=== PATIENT | female | born 1950 | race Caucasian/White ===

== ENCOUNTER 2023-01-15 11:58 | Emergency (ER) | payer MEDICARE, BC, SELFPAY ==
[2023-01-15 12:09] VITALS: BP 167/99; PULSE 92; RESP 18; TEMP 36.1; O2SAT 97
--- NOTE | 2023-01-15 12:19 | CRLHL7_ITS ---
For Patients: As a result of the Cures Act, medical imaging exams and procedure reports are released immediately into your electronic medical record. You may view this report before your referring provider. If you have questions, please contact your health care provider. INDICATION: Cough, infiltrate. TECHNIQUE: Chest 2 views. COMPARISON: None. FINDINGS: Cardiovascular and mediastinum: Heart size and vasculature are normal in caliber and appearance. Lungs and pleural spaces: Lungs are clear. No sign of infiltrate or mass. No sign of pleural effusion. No pneumothorax. Bones and soft tissues: No significant findings. IMPRESSION: No acute or significant findings. Dictated by Rashid Pickard MD @ 01/15/2023 5:22:18 PM (Electronically Signed)
--- NOTE | 2023-01-15 12:24 | ED.GENADULT ---
HPI - General Adult General Time Seen by Provider: 12:24 <Rashid Guerra MD - Last Filed: 02/06/23 16:52> Date Seen: 01/15/23 <Rashid Guerra MD - Last Filed: 02/06/23 16:52> Chief complaint: Neuro Symptoms/Altered Deficit <Rashid Guerra MD - Last Filed: 02/06/23 16:52> Stated complaint: L side numb <Rashid Guerra MD - Last Filed: 02/06/23 16:52> Time Seen by Provider: 01/15/23 12:06 <Rashid Guerra MD - Last Filed: 02/06/23 16:52> Source: patient and family <Rashid Guerra MD - Last Filed: 02/06/23 16:52> Mode of arrival: wheelchair <Rashid Guerra MD - Last Filed: 02/06/23 16:52> Limitations: no limitations <Rashid Guerra MD - Last Filed: 02/06/23 16:52> History of Present Illness HPI narrative: John is a 72-year-old female past medical history includes multiple sclerosis 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 Patient is not sure but developed left-sided numbness over the last week, patient states that it was more than acute onset and gradual, it has been unchanged, she feels it more in her left lower extremity. Numbness includes facial, left upper extremity and left lower extremity, she had her intrathecal baclofen pump changed recently, her last MR brain with/July, she feels that her MS has progressed, she denies any visual changes, headache, dizziness or lightheadedness, no facial weakness, no trouble speaking or swallowing, she gets her care at [facility]. She left [place] from [address] 0 01/11 due to inability to get care, he is unable to get into [facility], patient has had a chronic cough, she feels that her breathing has worsened, no fevers or chills, no nausea vomiting. She denies any new spasticity, muscular or bladder. She felt her blood pressure was more elevated. She was told in the past that she may have had some TIAs. She reached out to her Neurologist [facility] recommended to be seen in the emergency department. Concern for the left-sided numbness she presents emergency department. <Rashid Guerra MD - Last Filed: 02/06/23 16:52> Related Data Home medications: Home Medications Medication Instructions Recorded Confirmed albuterol sulfate 90 mcg/actuation 2 puff inhalation Q4H PRN 01/15/23 01/15/23 aerosol inhaler baclofen 10 mg tablet 10 mg PO BID PRN 01/15/23 01/15/23 bupropion HCl 150 mg 24 hr tablet, 150 mg PO DAILY 01/15/23 01/15/23 extended release cephalexin 250 mg capsule 250 mg PO DAILY PRN 01/15/23 01/15/23 furosemide 40 mg tablet 40 mg PO DAILY 01/15/23 01/15/23 levothyroxine 125 mcg tablet 125 mcg PO QAM 01/15/23 01/15/23 multivitamin .ROUTE 01/15/23 valsartan 80 mg tablet 80 mg PO DAILY 01/15/23 01/15/23 Previous Rx's Medication Instructions Recorded atorvastatin 40 mg tablet 40 mg PO DAILY #30 tabs 01/15/23 <Rashid Guerra MD - Last Filed: 02/06/23 16:52> Allergies/adverse reactions: Allergies Allergy/AdvReac Type Severity Reaction Status Date / Time phenytoin [From Dilantin] Allergy Severe Throat Verified 01/15/23 12:15 swelling Sulfa (Sulfonamide Allergy Severe Hives Verified 01/15/23 12:15 Antibiotics) <Rashid Guerra MD - Last Filed: 02/06/23 16:52> Review of Systems Status of ROS: Reports: 10 or more systems reviewed and unremarkable except as noted in History and below <Rashid Guerra MD - Last Filed: 02/06/23 16:52> [facility] Medical History: Medical History (Updated 01/30/23 @ 00:00 by Background Daemon) Lacunar cerebrovascular accident (CVA) ?I63.81 - Other cerebral infarction due to occlusion or stenosis of small artery (ICD-10) Asthma ?J45.909 - Unspecified asthma, uncomplicated (ICD-10) Presence of intrathecal baclofen pump ?Z97.8 - Presence of other specified devices (ICD-10) 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 ?G35 - Multiple sclerosis (ICD-10) ?G82.50 - Quadriplegia, unspecified (ICD-10) Respiratory failure, chronic neuromuscular ?J96.10 - Chronic respiratory failure, unspecified whether with hypoxia or hypercapnia (ICD-10) 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 - Other osteoporosis without current pathological fracture (ICD-10) Neurogenic bladder ?N31.9 - Neuromuscular dysfunction of bladder, unspecified (ICD-10) Neurogenic bowel ?K59.2 - Neurogenic bowel, not elsewhere classified (ICD-10) Osteoarthritis ?M19.90 - Unspecified osteoarthritis, unspecified site (ICD-10) Hypothyroidism ?E03.9 - Hypothyroidism, unspecified (ICD-10) Multiple sclerosis ?G35 - Multiple sclerosis (ICD-10) Meningioma ?D32.9 - Benign neoplasm of meninges, unspecified (ICD-10) Restrictive lung disease ?J98.4 - Other disorders of lung (ICD-10) Spinal stenosis excluding cervical region ?M48.00 - Spinal stenosis, site unspecified (ICD-10) <Rashid Guerra MD - Last Filed: 02/06/23 16:52> Surgical History: Surgical History (Updated 01/15/23 @ 12:44 by Callie Young RN) S/P colostomy ?Z93.3 - Colostomy status (ICD-10) <Rashid Guerra MD - Last Filed: 02/06/23 16:52> Social History: Social History Smoking Status: Former smoker Do you use any of these nicotine containing products: None Second hand tobacco smoke exposure: No How often do you have a drink containing alcohol: never AUDIT-C Alcohol total score: 0 Non-prescribed substance use: denies use service: No <Rashid Guerra MD - Last Filed: 02/06/23 16:52> Exam Narrative: Exam Narrative: General: no obvious distress sitting comfortably HEENT: symmetrical smile, no unilateral paralysis, pupils equal round reactive to light, extraocular muscles intact normal peripheral vision neck: supple lungs: clear to auscultation bilaterally Heart: normal sinus rhythm S1-S2 abdomen: bowel sounds present muscle skeletal: chronic quadriplegia Neuro: NIH stroke scale: 1A: Level of consciousness:0 1B: Ask month an age:0 1C: Blink eyes and squeeze hands:1 2: Horizontal extraocular movements:0 3: Visual estrada: 0 4: Facial palsy:0 5A: Left arm motor drift: Unable to perform due to chronic quadriplegia 5B: Right arm motor drift: Unable to perform due to chronic quadriplegia 6A: Left leg leg motor drift: Unable to perform due to chronic quadriplegia 6B: Right leg motor drift:Unable to perform due to chronic quadriplegia 7: Limb ataxia 8:Sensation: 1 9: Language/aphasia:0 10: Dysarthria:0 11: Extinction/inattention:0 2 <Rashid Guerra MD - Last Filed: 02/06/23 16:52> Const: Vital Signs, click to edit/add: Vital Signs - 24 hr 01/15/23 12:09 01/15/23 14:54 Temperature 97 F L 96.5 F L Pulse Rate [Pulse Oximeter] 92 91 Respiratory Rate 18 Blood Pressure [Ri ght Upper Arm] 167/99 H 170/97 H Pulse Oximetry 97 97 Oxygen Delivery Me thod Room Air <Rashid Guerra MD - Last Filed: 02/06/23 16:52> Vital Signs, click to edit/add: Vital Signs - 24 hr 01/15/23 12:09 01/15/23 14:54 Temperature 97 F L 96.5 F L Pulse Rate [Pulse Oximeter] 92 91 Respiratory Rate 18 Blood Pressure [Ri ght Upper Arm] 167/99 H 170/97 H Pulse Oximetry 97 97 Oxygen Delivery Me thod Room Air <James Castaneda MD - Last Filed: 01/15/23 18:23> Course Course Hospital Course: 12:30 PM: AIDET performed, blood pressure mildly elevated at 160 7/99 will continue to monitor, vitals are otherwise stable, workup will include MR brain without contrast to rule out any new infarcts versus progression of MS, also obtain Chest XR 2 views, magnesium, CBC and CMP, patient's Joseph catheter has been draining appropriately, spasticity has been controlled. Differential diagnosis include but not limited to CVA, worsening MS, heart failure, peripheral neuropathy, neuromuscular disease, other considerations are electrolyte imbalances, anemia, medication side effects or reactions, <Rashid Guerra MD - Last Filed: 02/06/23 16:52> Reevaluation(s) Time of Reevaluation #1: 14:54 <Rashid Guerra MD - Last Filed: 02/06/23 16:52> Reevaluation #1: XR chest two view showed no acute cardiopulmonary process, CBC showed no leukocytosis or anemia, metabolic panel showed mildly elevated LFTs, electrolytes, magnesium all within normal limits, normal renal function, CRP negative, unable to get MR brain until 4:30 p.m. this afternoon, the patient is doing well otherwise, blood pressure has improved during her stay. Will continue to monitor. <Rashid Guerra MD - Last Filed: 02/06/23 16:52> Time of Reevaluation #2: 15:57 <Rashid Guerra MD - Last Filed: 02/06/23 16:52> Reevaluation #2: Patient to go for MR brain. Patient is doing well. Due to shift change transfer of care was given to Dr. Castaneda pending imaging results, please see his note for final disposition and plan. <Rashid Guerra MD - Last Filed: 02/06/23 16:52> Reevaluation #3: Patient's MRI returns showing a subacute right lacunar infarct that could be consistent with her fairly new left-sided numbness. There is also evidence for some old lacunar infarcts. She tells me that she was on atorvastatin in the past and it was stopped for unclear reasons. She is fairly certain that she did not have side effects from it. She is not currently on any type of blood thinner. She is on valsartan for hypertension but her blood pressure has been still running in the 170 systolic range. We discussed permissive hypertension but that Dr. Mclaughlin would likely try to lower her blood pressure at some point in the next few weeks. I did provide her with a printed copy of her MRI report to take to her follow-up visit. <Jamse Castaneda MD - Last Filed: 01/15/23 18:23> Vital Signs Vital signs: Initial Vital Signs Temperature 97 F L 01/15/23 12:09 Temperature Source Temporal Artery Scan 01/15/23 12:09 Pulse Rate 92 01/15/23 12:09 Respiratory Rate 18 01/15/23 12:09 Blood Pressure 167/99 H 01/15/23 12:09 Blood Pressure Mean 121 H 01/15/23 12:09 Blood Pressure Position Sitting 01/15/23 12:09 Pulse Oximetry 97 01/15/23 12:09 Oxygen Delivery Method Room Air 01/15/23 12:09 Vital Signs Temperature 97 F L 01/15/23 12:09 Pulse Rate 92 01/15/23 12:09 Respiratory Rate 18 01/15/23 12:09 Blood Pressure 167/99 H 01/15/23 12:09 Pulse Oximetry 97 01/15/23 12:09 Oxygen Delivery Method Room Air 01/15/23 12:09 Temperature 96.5 F L 01/15/23 14:54 Pulse Rate 91 01/15/23 14:54 Respiratory Rate 18 01/15/23 12:09 Blood Pressure 170/97 H 01/15/23 14:54 Pulse Oximetry 97 01/15/23 14:54 Oxygen Delivery Method Room Air 01/15/23 12:09 <Rashid Guerra MD - Last Filed: 02/06/23 16:52> Initial Vital Signs Temperature 97 F L 01/15/23 12:09 Temperature Source Temporal Artery Scan 01/15/23 12:09 Pulse Rate 92 01/15/23 12:09 Respiratory Rate 18 01/15/23 12:09 Blood Pressure 167/99 H 01/15/23 12:09 Blood Pressure Mean 121 H 01/15/23 12:09 Blood Pressure Position Sitting 01/15/23 12:09 Pulse Oximetry 97 01/15/23 12:09 Oxygen Delivery Method Room Air 01/15/23 12:09 Vital Signs Temperature 97 F L 01/15/23 12:09 Pulse Rate 92 01/15/23 12:09 Respiratory Rate 18 01/15/23 12:09 Blood Pressure 167/99 H 01/15/23 12:09 Pulse Oximetry 97 01/15/23 12:09 Oxygen Delivery Method Room Air 01/15/23 12:09 Temperature 96.5 F L 01/15/23 14:54 Pulse Rate 91 01/15/23 14:54 Respiratory Rate 18 01/15/23 12:09 Blood Pressure 170/97 H 01/15/23 14:54 Pulse Oximetry 97 01/15/23 14:54 Oxygen Delivery Method Room Air 01/15/23 12:09 <James Castaneda MD - Last Filed: 01/15/23 18:23> Medical Decision Making Lab Data Labs: Lab Results 01/15/23 01/15/23 Range/Units 12:40 12:40 WBC 5.40 (4.50-11.00) K/uL RBC 5.12 (4.00-5.20) m/uL Hgb 16.2 H (12.0-16.0) gm/dL Hct 49.2 (33.0-51.0) % MCV 96 (80-100) fL MCH 32 (26-34) pg MCHC 33 (32-36) gm/dL RDW Coeff of Heather 12.6 (11.5-15.5) % Plt Count 260 (140-440) K/uL Neut % (Auto) 65.4 (42.0-72.0) % Lymph % (Auto) 22.6 (20-44) % [place] % (Auto) 10.7 (0.0-11.0) % Eos % (Auto) 0.9 (0.0-7.0) % Baso % (Auto) 0.2 (0.0-3.0) % Neut # (Auto) 3.53 (1.7-7.0) K/uL Lymph # (Auto) 1.22 (0.90-2.90) K/uL [place] # (Auto) 0.60 (0.00-0.90) K/UL Eos # (Auto) 0.05 (0.00-0.50) K/uL Baso # (Auto) 0.01 (0.00-0.30) K/uL Sodium 137 (135-149) mmol/L Potassium 4.1 (3.6-5.1) mmol/L Chloride 98 (96-114) mmol/L Carbon Dioxide 30 (20-32) mmol/L BUN 12 (7-30) mg/dL Creatinine 0.4 L (0.5-1.5) mg/dL Estimated GFR 105 ml/min Glucose 90 (60-115) mg/dL Calcium 10.0 (8.4-10.6) mg/dL Magnesium 1.9 (1.5-2.6) mg/dL Total Bilirubin 0.5 (0.1-1.5) mg/dL AST 52 H (12-35) U/L ALT 62 H (4-35) U/L Alkaline Phosphatase 99 (40-150) U/L C-Reactive Protein < 0.5 L Cancelled (0.5-1.0) mg/dL Total Protein 8.0 (6.0-8.3) g/dL Albumin 4.7 (3.3-5.0) g/dL <Rashid Guerra MD - Last Filed: 02/06/23 16:52> Lab Results 01/15/23 01/15/23 Range/Units 12:40 12:40 WBC 5.40 (4.50-11.00) K/uL RBC 5.12 (4.00-5.20) m/uL Hgb 16.2 H (12.0-16.0) gm/dL Hct 49.2 (33.0-51.0) % MCV 96 (80-100) fL MCH 32 (26-34) pg MCHC 33 (32-36) gm/dL RDW Coeff of Heather 12.6 (11.5-15.5) % Plt Count 260 (140-440) K/uL Neut % (Auto) 65.4 (42.0-72.0) % Lymph % (Auto) 22.6 (20-44) % [place] % (Auto) 10.7 (0.0-11.0) % Eos % (Auto) 0.9 (0.0-7.0) % Baso % (Auto) 0.2 (0.0-3.0) % Neut # (Auto) 3.53 (1.7-7.0) K/uL Lymph # (Auto) 1.22 (0.90-2.90) K/uL [place] # (Auto) 0.60 (0.00-0.90) K/UL Eos # (Auto) 0.05 (0.00-0.50) K/uL Baso # (Auto) 0.01 (0.00-0.30) K/uL Sodium 137 (135-149) mmol/L Potassium 4.1 (3.6-5.1) mmol/L Chloride 98 (96-114) mmol/L Carbon Dioxide 30 (20-32) mmol/L BUN 12 (7-30) mg/dL Creatinine 0.4 L (0.5-1.5) mg/dL Estimated GFR 105 ml/min Glucose 90 (60-115) mg/dL Calcium 10.0 (8.4-10.6) mg/dL Magnesium 1.9 (1.5-2.6) mg/dL Total Bilirubin 0.5 (0.1-1.5) mg/dL AST 52 H (12-35) U/L ALT 62 H (4-35) U/L Alkaline Phosphatase 99 (40-150) U/L C-Reactive Protein < 0.5 L Cancelled (0.5-1.0) mg/dL Total Protein 8.0 (6.0-8.3) g/dL Albumin 4.7 (3.3-5.0) g/dL <James Castaneda MD - Last Filed: 01/15/23 18:23> Discharge Plan Discharge Clinical Impression: Lacunar stroke, History of quadriplegia, Left sided numbness, History of multiple sclerosis <Rashid Guerra MD - Last Filed: 02/06/23 16:52> Patient Disposition: Home, Self-Care <Rashid Guerra MD - Last Filed: 02/06/23 16:52> Condition: Stable <Rashid Guerra MD - Last Filed: 02/06/23 16:52> Additional Instructions: Continue to monitor your blood pressure. Dr. Mclaughlin will likely want to increase your valsartan dose. Start taking a baby aspirin daily. Start a atorvastatin 40 mg daily. Follow up with Dr. Mclaughlin next week. <Rashid Guerra MD - Last Filed: 02/06/23 16:52> Prescriptions: New atorvastatin 40 mg tablet 40 mg PO DAILY Qty: 30 0RF No Action furosemide 40 mg tablet 40 mg PO DAILY baclofen 10 mg tablet 10 mg PO BID PRN levothyroxine 125 mcg tablet 125 mcg PO QAM albuterol sulfate 90 mcg/actuation HFA aerosol inhaler 2 puff INHALATION Q4H PRN bupropion HCl 150 mg tablet extended release 24 hr 150 mg PO DAILY multivitamin [Daily Multi-Vitamin] .ROUTE cephalexin 250 mg capsule 250 mg PO DAILY PRN valsartan 80 mg tablet 80 mg PO DAILY <Rashid Guerra MD - Last Filed: 02/06/23 16:52> Follow Up/Referrals: Arnoldo,Madonna L, MD [Primary Care Provider] - <Rashid Guerra MD - Last Filed: 02/06/23 16:52> Stand Alone Forms: MyHealth Info Instructions <Rashid Guerra MD - Last Filed: 02/06/23 16:52>
--- OUTSIDE RECORDS SUMMARY | 2023-01-15 12:38 | XMS_ITS | Continuity of Care Document ---
Author Name Unknown Organization Z [facility] Address [address] [place] [address] Phone Care Team Providers Care Joiner Helper Name Role Phone Rashid Jacobs MD Unavailable Unavailable Allergies, Adverse Reactions, Alerts Substance Reaction Status Criticality sulfanilamide Active No Information Medications Medication Instructions Dosage Effective Dates (start - stop) Status Comments WELLBUTRIN (unknown strength) Not Available - Active Procedures Procedure Date Office/Outpatient Visit,Est, Mod 2012 X-Ray Exam Of Neck Spine, 4+ Views Office/outpatient visit,est, mod 2007 X-ray exam of total spine Office/outpatient visit,est, mod 2007 Office consultation, moderate 7 Advance Directives Directive Yes / No Effective Date File Name No Information Encounters Encounter Description Practice Location Reason(s) For Visit Diagnoses Date Provider Providers Copied on Encounter [facility] [place], [address] [place], [place] [address] [place] [address], [address], [place] tel:[phone] ADELINA - Maribell No Information 4 Reynaldo Mike. [facility] [place], [address] [place] [address], [address], [place], [place], [id number], [place]. tel:[phone] Office/Outpa tient Visit,Est, Mod Z [facility] [place], [address], [place], [address], [place] tel:[phone] [facility] CERVICAL[facility] 3 Reynaldo Mike. [facility], [address] [place] [address], [address], [place], [place], [id number], [place]. tel:[phone] Referring Provider: Jazzmine Martinez [facility] [address] [facility] [address] [address], [place], [address]. tel:[phone] Office/outpa tient visit,est, mod Z [facility], [address], [place], [address], [place] tel:[phone] [facility] No Information 8 Randyra Mike. [facility], [address] [place] [address], [address], [place], [place], [id number], [place]. tel:[phone] Office/outpa tient visit,est, mod Z [facility], [address], [place], [address], [place] tel:[phone] [facility] No Information Sep- 8 No Information Office consultation , moderate Z [facility], [address], [place], [address], [place] tel:[phone] [facility] No Information 7 No Information Family History Family Member Type Diagnosis Age At Onset Problem (finding) Payers Payer name Insurance type Covered democrat ID Authoriza tion(s) [facility] [id number] Medicare BL [id number] Social History Type Description Quantity Date Captured Comments Sex Female Smoking Status No Information Chief Complaint And Reason For Visit No Information Reason For Referral Reason For Referral No Information Plan Of Treatment Date Type Action Status Future Order: Radiology Order AP Lateral Cervical (APlatcerv), Ordered on: Ordered Future Order: Radiology Order F/ E Cervical (F/Ecervical), Ordered on: Ordered History Of Present Illness Encounter Date Complaint History Of Prese nt Illness No Information Functional Status Date Functional Assessmen t No Information Instructions Date Instruction Additional Infor mation No Information Assessments Type Assessment Date No Information Patient Care Teams Name Effective Dates (start - stop) Status Members No Information
--- OUTSIDE RECORDS SUMMARY | 2023-01-15 12:38 | XMS_ITS | Continuity of Care Document ---
Author Name Unknown Organization Z [facility] Address [address] [place] [address] Phone Care Team Providers Care Director Game Name Role Phone Rashid Jacobs MD Unavailable [...] Date Provider Providers Copied on Encounter Z [facility] [place], [address] [place], [place] [address] [place] [address], [address], [place] tel:[phone] ADELINA - Maribell No Information 4 Reynaldo Mike. [facility] [place], [address] [place] [address], [address], [place], [place], [address], [place]. tel:[phone] Office/Outpa tient Visit,Est, Mod Z [facility] [place], [address], [place], [address], [place] tel:[phone] [facility] CERV[facility] 3 Reynaldo Mike. [facility], [address] [place] [address], [address], [place], [place], [id number], [place]. tel:[phone] Referring Provider: Jazzmine Martinez [facility] [address] [facility] [address], [place], [address]. tel:[phone] Office/outpa tient visit,est, mod Z [facility], [address], [place], [address], [place] tel:[phone] [facility] No Information 8 Randyra Mike. [facility], [address] [place] [address], [address], [place], [place], [id number], [place]. tel:[phone] Office/outpa tient visit,est, mod Z [facility], [address] [address], [place], [address], [place] tel:[phone] [facility] No Information Sep- 8 No Information Office consultation , moderate Z [facility], [address] [address], [place], [address], [place] tel:[phone] [facility] No Information 7 No Information Family History Family Member Type Diagnosis Age At Onset Problem (finding) Payers Payer name Insurance type Covered libertarian ID Authoriza tion(s) [facility] [id number] Medicare BL [id number] Social History Type Description Quantity Date Captured [...]
--- NOTE | 2023-01-15 12:40 | ED.NURSE ---
Lab in with patient for draw.
[2023-01-15 12:51] LABS: Eosinophils Percent Auto 0.9 % (0.0-7.0); Hematocrit 49.2 % (33.0-51.0); Hemoglobin* 16.2 gm/dL (12.0-16.0); Lymphocytes Percent Auto 22.6 % (20-44); Mean Corpuscular HGB Conc 33 gm/dL (32-36); Mean Corpuscular Hemoglobin 32 pg (26-34); Mean Corpuscular Volume 96 fL (80-100); Monocytes Percent Auto 10.7 % (0.0-11.0); Neutrophils Percent Auto 65.4 % (42.0-72.0); Platelet Count* 260 K/uL (140-440); RDW Coefficient of Variation % 12.6 % (11.5-15.5); Red Blood Count 5.12 m/uL (4.00-5.20)
[2023-01-15 12:52] LABS: Basophils Absolute Auto 0.01 K/uL (0.00-0.30); Basophils Percent Auto 0.2 % (0.0-3.0); Eosinophils Absolute Auto 0.05 K/uL (0.00-0.50); Immature Granulocytes Abs Auto 0.01 K/uL (0.00-0.30); Immature Granulocytes Pct Auto 0.2 %; Lymphocytes Absolute Auto 1.22 K/uL (0.90-2.90); Neutrophils Absolute Auto 3.53 K/uL (1.7-7.0)
[2023-01-15 12:58] LABS: Slide Review Reflex No
[2023-01-15 13:03] LABS: Albumin* 4.7 g/dL (3.3-5.0); Chloride* 98 mmol/L (96-114); Sodium* 137 mmol/L (135-149)
[2023-01-15 13:04] LABS: Potassium* 4.1 mmol/L (3.6-5.1)
[2023-01-15 13:05] LABS: Creatinine* 0.4 mg/dL (0.5-1.5); Estimated Glomerular Filt Rate 105 ml/min
[2023-01-15 13:06] LABS: Alkaline Phosphatase* 99 U/L (40-150); Aspartate Amino Transferase* 52 U/L (12-35); Bilirubin Total* 0.5 mg/dL (0.1-1.5); Blood Urea Nitrogen* 12 mg/dL (7-30); Carbon Dioxide* 30 mmol/L (20-32)
[2023-01-15 13:07] LABS: Alanine Aminotransferase* 62 U/L (4-35); Glucose* 90 mg/dL (60-115); Magnesium* 1.9 mg/dL (1.5-2.6)
[2023-01-15 13:10] LABS: C Reactive Protein* < 0.5 mg/dL (0.5-1.0)
--- NOTE | 2023-01-15 13:22 | ED.NURSE ---
Pt assisted to empty urinary catheter bag. Bag full of clear, pale yellow urine. No foul odors or sediment noted.
--- NOTE | 2023-01-15 13:50 | ED.NURSE ---
This editorial writer received call from imagining department stating pt's MRI is scheduled for 1630 today. Per imagining, pt will need to be moved from her WC to lying on the bed with an air mat underneath her. Pt and notified and in agreement with this.
[2023-01-15 14:54] VITALS: BP 170/97; PULSE 91; TEMP 35.8; O2SAT 97
--- NOTE | 2023-01-15 16:09 | ED.NURSE ---
Pt's daughter assisted pt onto ED cot prior to MRI. Staff assisted to slide pt from ED cot to MRI cot. Pt tolerated transfer.
--- NOTE | 2023-01-15 16:30 | CRLHL7_ITS ---
For Patients: As a result of the Century Cures Act, medical imaging exams and procedure reports are released immediately into your electronic medical record. You may view this report before your referring provider. If you have questions, please contact your health care provider. INDICATION: Facial numbness. Upper extremity and lower extremity numbness. TECHNIQUE: Multiplanar multisequence noncontrast MR images acquired through the brain. COMPARISON: None. FINDINGS: Small focus of diffusion and FLAIR hyperintense signal abnormality demonstrating ADC isointensity within the lateral right thalamus, compatible with subacute infarction. Small focus of diffusion hyperintense signal abnormality demonstrating ADC iso/hyperintensity within the right corpus callosum splenium (series 5, image 39), compatible with late subacute to chronic infarction. Prominence of the ventricles and sulci compatible with mild diffuse cerebral volume loss. Chronic lacunar infarctions within the bilateral warren radiata, right centrum semiovale, and left basal ganglia. Small chronic cortically based infarction within the high right frontal lobe. Scattered FLAIR hyperintensities in the supratentorial white matter, typical for mild chronic microvascular ischemic changes. No recent intracranial hemorrhage. Postsurgical changes secondary to parietal vertex craniotomy. The major arterial flow voids of the skullbase are preserved. Thinning of the ocular lenses. The paranasal sinuses are well aerated. The mastoid air cells are clear. IMPRESSION: 1. Small subacute infarction within the lateral right thalamus. 2. Small late subacute to chronic infarction within the right corpus callosum splenium. 3. Chronic lacunar infarctions in the right centrum semiovale, bilateral warren radiata, and left basal ganglia. 4. Mild chronic microvascular ischemic changes and diffuse cerebral volume loss. 5. Postsurgical changes of parietal vertex craniotomy. Dictated by Hola Leonardo MD @ 01/15/2023 5:32:16 PM (Electronically Signed)
== END 2023-01-15 18:13 | disposition home or self-care (01) ==
PROVIDERS: Emergency Provider Student in an Organized Health Care Education/Training Program; PCP Internal Medicine
DX: I63.81 Other cerebral infarction due to occlusion or stenosis of small artery (principal); R20.8 Other disturbances of skin sensation
CPT/HCPCS: 36415; 70551; 71046; 80053; 83735; 85025; 86140; 99283; 99284; 99285

== ENCOUNTER 2024-03-24 10:45 | Emergency (ER) | payer MEDICARE, BC, SELFPAY ==
[2024-03-24 11:18] VITALS: BP 189/87; PULSE 83; RESP 18; O2SAT 97; BMI 22.6
--- NOTE | 2024-03-24 12:20 | ED_ITS ---
HPI - General Adult General Chief complaint: Hypertension Stated complaint: high BP Time Seen by Provider: 03/24/24 11:34 Source: patient Mode of arrival: ambulatory Limitations: no limitations History of Present Illness HPI narrative: 74-year-old female for presenting today with concerns of elevated blood pressure. Generally blood pressures range in the 130s to 140 systolic. This morning was 167 she took again 5 minutes later and it was 175 systolic. Patient denies any new symptoms of headache, chest pain, shortness of breath, dizziness. Patient has chronic shortness of breath which is unchanged today. She also has mild chronic dizziness which is also unchanged. She denies any new focal neurologic deficits, no ringing in her ears, no blurry vision or diplopia. No changes in her speech. Related Data Home Medications ?Medication ?Instructions ?Recorded ?Confirmed albuterol sulfate 90 mcg/actuation 2 puff inhalation Q4H PRN 01/15/23 03/24/24 aerosol inhaler baclofen 10 mg tablet 10 mg PO BID PRN 01/15/23 03/24/24 bupropion HCl 150 mg 24 hr tablet, 150 mg PO DAILY 01/15/23 03/24/24 extended release cephalexin 250 mg capsule 250 mg PO DAILY PRN 01/15/23 03/24/24 furosemide 40 mg tablet 40 mg PO DAILY 01/15/23 03/24/24 levothyroxine 125 mcg tablet 125 mcg PO QAM 01/15/23 03/24/24 multivitamin .Route 01/15/23 valsartan 80 mg tablet 80 mg PO DAILY 01/15/23 03/24/24 Previous Rx's ?Medication ?Instructions ?Recorded atorvastatin 40 mg tablet 40 mg PO DAILY #30 tabs 01/15/23 Allergies Allergy/AdvReac Type Severity Reaction Status Date / Time phenytoin [From Dilantin] Allergy Severe Throat Verified 03/24/24 11:26 swelling Sulfa (Sulfonamide Allergy Severe Hives Verified 03/24/24 11:26 Antibiotics) Review of Systems Status of ROS: Reports: 10 or more systems reviewed and unremarkable except as noted in History and below [facility] Medical History Lacunar cerebrovascular accident (CVA) ?I63.81 - Other cerebral infarction due to occlusion or stenosis of small artery (ICD-10) Asthma ?J45.909 - Unspecified asthma, uncomplicated (ICD-10) Presence of intrathecal baclofen pump ?Z97.8 - Presence of other specified devices (ICD-10) 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 ?G35 - Multiple sclerosis (ICD-10) ?G82.50 - Quadriplegia, unspecified (ICD-10) Respiratory failure, chronic neuromuscular ?J96.10 - Chronic respiratory failure, unspecified whether with hypoxia or hypercapnia (ICD-10) 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 - Other osteoporosis without current pathological fracture (ICD-10) Neurogenic bladder ?N31.9 - Neuromuscular dysfunction of bladder, unspecified (ICD-10) Neurogenic bowel ?K59.2 - Neurogenic bowel, not elsewhere classified (ICD-10) Osteoarthritis ?M19.90 - Unspecified osteoarthritis, unspecified site (ICD-10) Hypothyroidism ?E03.9 - Hypothyroidism, unspecified (ICD-10) Multiple sclerosis ?G35 - Multiple sclerosis (ICD-10) Meningioma ?D32.9 - Benign neoplasm of meninges, unspecified (ICD-10) Restrictive lung disease ?J98.4 - Other disorders of lung (ICD-10) Spinal stenosis excluding cervical region ?M48.00 - Spinal stenosis, site unspecified (ICD-10) Surgical History S/P colostomy ?Z93.3 - Colostomy status (ICD-10) Social History Smoking Status: Former smoker Do you use any of these nicotine containing products: None Second hand tobacco smoke exposure: No How often do you have a drink containing alcohol: never AUDIT-C Alcohol total score: 0 Non-prescribed substance use: denies use service: No Exam Narrative: Exam Narrative: Well-nourished well-developed patient in no acute distress. Alert and oriented x3. Answers questions appropriately. Mood and affect are appropriate. Thoughts are goal oriented and rational. No tangential or magical thinking noted. Patient speaks in full sentences without needing to catch her breath. HEENT: Normocephalic atraumatic. Pupils are equally round reactive to light. Extraocular muscles are intact. Conjunctivae are moist without any icterus noted. Moist mucous membranes. Cardiovascular: Heart is regular rate and rhythm S1 and S2 are present without any murmurs. Lungs: Clear to auscultation bilaterally no wheezes rhonchi or rales are appreciated. Patient takes deep breaths without any discomfort. Extremities: Bilateral lower extremities show 1+ pitting edema. Skin: Well perfused. Const: Vital Signs, click to edit/add: Vital Signs - 24 hr 03/24/24 11:18 Pulse Rate [Pulse Oximeter] 83 Respiratory Rate 18 Blood Pressure [Le ft Upper Arm] 189/87 H Pulse Oximetry 97 Oxygen Delivery Me thod Room Air Course Vital Signs Vital signs: Initial Vital Signs Pulse Rate 83 03/24/24 11:18 Respiratory Rate 18 03/24/24 11:18 Blood Pressure 189/87 H 03/24/24 11:18 Blood Pressure Mean 121 H 03/24/24 11:18 Blood Pressure Position Sitting 03/24/24 11:18 Pulse Oximetry 97 03/24/24 11:18 Oxygen Delivery Method Room Air 03/24/24 11:18 Vital Signs Pulse Rate 83 03/24/24 11:18 Respiratory Rate 18 03/24/24 11:18 Blood Pressure 189/87 H 03/24/24 11:18 Pulse Oximetry 97 03/24/24 11:18 Oxygen Delivery Method Room Air 03/24/24 11:18 Pulse Rate 83 03/24/24 11:18 Respiratory Rate 18 03/24/24 11:18 Blood Pressure 189/87 H 03/24/24 11:18 Pulse Oximetry 97 03/24/24 11:18 Oxygen Delivery Method Room Air 03/24/24 11:18 Medical Decision Making MDM Narrative Medical decision making narrative: 74-year-old female with 1 day of elevated blood pressures. We discussed that this is not something she needs to be concerned about. We discussed that blood pressures tend to fluctuate. We discussed that if they are elevated consistently then she can discuss this with her primary care provider and potentially change of blood pressure medications. Patient also has chronic lower extremity edema for which he takes diuretics for. She states that she has not taken her diuretics for the last few days because she has been busy. We discussed taking her diuretics. We discussed reasons to follow up in the ED. Patient and had no other questions. Discharge Plan Discharge Clinical Impression: Elevated blood pressure reading Patient Disposition: Home, Self-Care Condition: Stable Additional Instructions: Okay to take your diuretic. Do not repeat blood pressure reading today. Continue checking blood pressure as recommended per your primary care provider. If blood pressure readings continue to be elevated, you can follow-up with your primary care provider to discuss changing your medications. Prescriptions: No Action furosemide 40 mg tablet 40 mg PO DAILY baclofen 10 mg tablet 10 mg PO BID PRN levothyroxine 125 mcg tablet 125 mcg PO QAM albuterol sulfate 90 mcg/actuation HFA aerosol inhaler 2 puff INHALATION Q4H PRN bupropion HCl 150 mg tablet extended release 24 hr 150 mg PO DAILY multivitamin [Daily Multi-Vitamin] .Route cephalexin 250 mg capsule 250 mg PO DAILY PRN valsartan 80 mg tablet 80 mg PO DAILY atorvastatin 40 mg tablet 40 mg PO DAILY Qty: 30 0RF Follow Up/Referrals: Madonna Mclaughlin MD [Primary Care Provider] - Stand Alone Forms: [employer] Info Instructions
[2024-03-24 12:37] VITALS: BP 188/104; PULSE 75; RESP 18; TEMP 35.7; O2SAT 95
--- OUTSIDE RECORDS SUMMARY | 2024-03-24 12:40 | XMS_ITS | Clinical Summary ---
Author Organization [place] Address [address] [place] [id number] Care Team Providers Care Vp Human Resources Name Role Phone Ursula Braga MD Unavailable + [phone] Ursula Braga MD Unavailable [phone] Ursula Braga MD Unavailable + [phone] Madonna Lombardi Primary Care Provider [phone] Madonna Lombardi Unavailable [phone] Allergies Active Allergy Reactions Criticality Noted Date Comments Hydromorphone Medium 07/24/2010 Other reaction(s): Tongue Swelling Other (Do Not Use) Hives High 02/09/2021 Sulfa--Hives Dilontin--Throat swells Other Drug Allergy (See Comments) Headache 11/25/2008 Other reaction(s): Edema She had stress test 11/24/2008 and what ever she received for this made her tongue swell and slowed her ability to breath. ??She also got a headache which is same today as then. Phenytoin 09/30/2011 Other reaction(s): Tongue Swelling Sulfa Antibiotics Hives 08/14/2005 Hives Sulfamethoxazole-Trimethopri m Rash Low 11/23/2008 Teriparatide 08/08/2011 Other reaction(s): Chest Pain Had reaction 2009 and 2011 consisting of fatigue and chest tightness Medications Medication Sig Dispensed Refills Start Date End Date Status albuterol (VENTOLIN HFA) 108 (90 Base) MCG/ACT inhaler Inhale 2 puffs into the lungs every 4 hours as needed 01/24/2021 Active baclofen (LIORESAL) 10 MG tablet TAKE ONE TABLET BY MOUTH TWICE A DAY NEEDED FOR SPASTICITY. 08/31/2022 Active baclofen (LIORESAL) 500 mcg/mL injection 3.9521 mcg/hr by Intrathecal route 02/28/2022 Active buPROPion (WELLBUTRIN XL) 150 MG 24 hr tablet Take 1 tablet by mouth daily 05/25/2022 Active cephALEXin (KEFLEX) 250 MG capsule Take 250 mg by mouth daily TAKE ONE CAPSULE BY MOUTH EVERY DAY NEEDED FOR PROPYLAXIS 10/15/2022 Active furosemide (LASIX) 40 MG tablet Take 40 mg by mouth as needed Active hydrochlorothiazide (HYDRODIURIL) 25 MG tablet Take 1 tablet by mouth daily 08/31/2022 Active levothyroxine (SYNTHROID/LEVOTHROI D) 125 MCG tablet TAKE ONE TABLET BY MOUTH EVERY DAY BEFORE BREAKFAST. 09/14/2022 Active Multiple Vitamin (ONE-A-DAY ESSENTIAL) TABS Take 1 tablet by mouth daily Active polyethylene glycol (MIRALAX) 17 GM/Dose powder Use daily as needed Activ e valsartan (DIOVAN) 80 MG tablet Take 80 mg by mouth 2 times daily 10/04/2023 Active ibuprofen (ADVIL/MOTRIN) 200 MG tablet Take 400 mg by mouth every 8 hours as needed for pain Active Active Problems Problem Noted Date Diagnosed Date S/P colostomy 11/06/2022 Neuromuscular weakness 11/06/2022 Respiratory failure, chronic neuromuscular 11/06 Meningioma 11/06/2022 Encounters Date Type Department Care Team Description 01/13/2024 11:00 AM CDT Office Visit [facility] [address] [address] Ursula Braga MD MS (multiple sclerosis) (H) (Primary Dx); Spastic quadriplegia (H); Respiratory failure, chronic neuromuscular (H) 01/13/2024 Travel from Last 3 Months Social History Tobacco Use Types Packs/Day Years Used Date Smoking Tobacco: Former Cigarettes Smokeless Tobacco: Never Tobacco Cessation:Counseling Given: Not Answered Comments:Quit in 1995 PHQ-2 Answer Date Recorded PHQ-2 Score 0 01/13/2024 Adolescent Education Answer Date Record ed Getting School Help Needed Not on file 04/13 Sex and Gender Information Value Date Recorded Sex Assigned at Not on file Gender Identity Not on file Sexual Orientation Not on file Last Filed Vital Signs Vital Sign Reading Time Taken Comments Blood Pressure 176/89 01/13/2024 11:11 AM CDT Pulse 63 01/13/2024 11:11 AM CDT Temperature - - Respiratory Rate - - Oxygen Saturation - - Inhaled Oxygen Concentration - - Weight - - Height - - Body Mass Index - - Plan of Treatment Upcoming Encounters Date Type Department Care Team (Late st Contact Info) Description 07/16/2024 11:00 AM 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 [address] [address] Ursula Braga MD [address] [place] [id number] Health Maintenance Due Date Last Done Comments ADVANCE CARE PLANNING 1950 ANNUAL REVIEW OF HM ORDERS 1950 CT COLONOGRAPHY 1950 DEXA 1950 FIT 1950 FLEX SIG 1950 TSH W/FREE T4 REFLEX 1950 sDNA (Cologuard) 1950 HEPATITIS C SCREENING 02/20/1968 ZOSTER IMMUNIZATION (1 of 2) 02/20/2000 DTAP/TDAP/TD IMMUNIZATION (1 - Tdap) 07/11/2000 07/10/2000 RSV VACCINE (1 - 1-dose 60+ series) 2010 MAMMO SCREENING 11/10/2011 11/09/2009 GLUCOSE 02/11/2012 02/10/2009 FALL RISK ASSESSMENT 2015 LUNG CANCER SCREENING 03/03/2020 03/03/2019, 015 COLONOSCOPY 03/20/2020 03/20/2010 COLORECTAL CANCER SCREENING 03/20/2020 COVID-19 Vaccine ( season) 2023 06/19/2023, 05/18/2021, 11/11/2020, Additional history exists LIPID 11/06/2023 11/05/2022 INFLUENZA VACCINE (#1) 2024 7, 05/24/2016, 04/26/2015, Additional history exists MEDICARE ANNUAL WELLNESS VISIT 11/20/2024 11/21/2023 Pneumococcal Vaccine: 65+ Years Completed 06/06/2017, 04/11/2016, 07/21/2008, Additional history exists PHQ-2 (once per calendar year) Completed 01/13/2024, 11/05/2022 HPV IMMUNIZATION Aged Out No longer e ligible based on patient's age to complete this topic MENINGITIS IMMUNIZATION Aged Out No l onger eligible based on patient's age to complete this topic RSV MONOCLONAL ANTIBODY Aged Out No l onger eligible based on patient's age to complete this topic Procedures Procedure Name Priority Date/Time Associated Diagnosis Comments LIPID REFLEX TO DIRECT LDL PANEL Routine 11/05/2022 4:48 PM CDT Cerebrovascular accident (CVA) due to occlusion of small artery (H) BASIC METABOLIC PANEL Routine 02/10/2009 3:32 PM CDT from Last 3 Months or Most Recently Relevant to Health Maintenance Results * (ABNORMAL) Lipid panel reflex to direct LDL Fasting (11/05/2022 4:48 PM CDT) [facility] Cholesterol 332(H) <=199 mg/dL 11/05/2022 5:09 PM CDT [facility] Triglycerides 105 <=149 mg/dL 11/05/2022 5:09 PM CDT [facility] Direct Measure HDL 86 >=50 mg/dL 11/05/2022 5:09 PM CDT [facility] Comment: HDL Cholesterol Reference Range: 0-2 years: No reference ranges established for patients under 2 years old ??at [facility] for lipid analytes. 2-8 years: Greater than 45 mg/dL 18 years and older: Female: Greater than or equal to 50 mg/dL Male: ?? Greater than or equal to 40 mg/dL LDL Cholesterol Calculated 225(H) <=129 mg/dL 11/05/2022 5:09 PM CDT [facility] Patient Fasting > 8hrs? No 11/05/2022 5:09 PM CDT [facility] Blood BLOOD SPECIMEN / Unknown Venipuncture / Unknown 11/05/2022 4:48 PM CDT 11/05/2022 4:48 PM CDT Ursula Braga MD LAB - BLOOD OR DERABLES [facility] [address] [facility] [place] [id number], [facility] [phone] * Basic metabolic panel (02/10/2009 3:32 PM CDT) Sodium 140 133 - 144 mmol/L [facility] Potassium 4.1 3.4 - 5.3 mmol/L [facility] Chloride 106 94 - 109 mmol/L [facility] Carbon Dioxide 27 20 - 32 mmol/L [facility] Glucose 76 60 - 99 mg/dL [facility] Comment:Non Fasting Urea Nitrogen 15 7 - 30 mg/dL [facility] Creatinine 0.60 0.52 - 1.04 mg/dL [facility] Comment:New IDMS-traceable c alibration beginning 11/20/07 GFR Estimate >90 >60 mL/min/1.7 m2 [facility] GFR Estimate If Black >90 >60 mL/min/1.7 m2 [facility] Calcium 10.1 8.5 - 10.4 mg/dL [facility] Anion Gap 7 6 - 17 mmol/L [facility] 02/10/2009 3:32 PM CDT 02/10/2009 3:09 PM CDT Seun Grande MD LAB - BLOOD OR DERABLES [facility] from Last 3 Months or Most Recently Relevant to Health Maintenance Care Teams Vp Human Resources Relationship Specialty Start Date End Date Madonna Lombardi [address] [place] [address] [place] FOFANA [phone] PCP - General Internal Medicine 08/12/23 Ursula Braga MD [address] [place], [place] [address] Neurology 08/07/22 Ursula Braga MD [address] [place] [address] [id number] Neurology 09/19/22 Ursula Braga MD [address] [place] [id number] Assigned Neuroscience Provider 11/10/22 Madonna Lombardi [address] [place] [address] [place] Hen[place] [id number] Internal Medicine 09/25/23
--- OUTSIDE RECORDS SUMMARY | 2024-03-24 12:40 | XMS_ITS | Clinical Summary ---
Author Organization [facility] Address [address], [place] [address] Care Team Providers Care Salt Manager Name Role Phone Unassigned, Provider Primary Care Provider Unava ilable Source Comments You are receiving this document as you are listed as the primary care provider,follow-up provider, or the patient has been referred to you for consultation.This is in compliance with the Medicare andMedicaid EHR Incentive Program,which states Providers who transition their patient to another setting of careor provider of care or refers their patient to another provider of care shouldprovide summary care record for each transition of care or referral. [facility] Allergies Active Allergy Reactions Criticality Noted Date Comments Other Hives High 02/09/2021 Sulfa--Hives Dilontin--Throat swells Medications Medication Sig Dispensed Refills Start Date End Date Status baclofen (GABLOFEN) daily. Baclofen pump 10K MCG/20ML Daily Active polyethylene glycol (MIRALAX) 17 g packet Take by mouth daily. Acti ve Multiple Vitamins-Iron (MULTIVITAMIN/IRON OR) Active buPROPion (WELLBUTRIN XL) 150 MG 24 hour release tablet Take 1 Tablet by mouth daily. 09/19/2020 Active ALBUterol sulfate HFA (VENTOLIN HFA) 108 (90 Base) MCG/ACT inhaler Inhale 2 Puffs every 4 hours as needed. 01/24/2021 Active levothyroxine (SYNTHROID) 125 MCG tablet Take 125 mcg by mouth. Active furosemide (LASIX) 40 MG tablet Take 40 mg by mouth. Ac tive cephalexin (KEFLEX) 250 MG capsule 250mg Po Qday for prophylaxis 01/10/2021 Active Specialty Vitamins Products (VITAMINS FOR HAIR) Take 1 Tablet by mouth daily. Active Active Problems Patient Care Coordination No te Formatting of this note migh t be different from the original. Interactive with [facility], Closed to [facility], 04/10/2012. Problem Noted Date Diagnosed Date Restrictive lung disease 02/10/2021 Multiple sclerosis 02/10/2021 Neuromuscular weakness 02/10/2021 Chronic dyspnea 02/10/2021 Immunizations Name Administration Dates Next Due Pfizer Monovalent 12+ Purple Top 11/11/2020,07/23 Social History Tobacco Use Types Packs/Day Years Used Date Smoking Tobacco: Former Cigarettes Q uit: 1997 Smokeless Tobacco: Never Sex and Gender Information Value Date Recorded Sex Assigned at Not on file Gender Identity Not on file Sexual Orientation Not on file Last Filed Vital Signs Vital Sign Reading Time Taken Comments Blood Pressure - - Pulse 93 02/09/2021 2:54 PM CDT Temperature - - Respiratory Rate - - Oxygen Saturation 97% 02/09/2021 2:54 PM CDT Inhaled Oxygen Concentration - - Weight - - Height 167.6 cm (5' 6) 02/09/2021 2:54 PM CDT Body Mass Index - - Plan of Treatment Health Maintenance Due Date Last Done Comments Colon Cancer Screening Plan Due 1950 Hep C Screening (Preventive Services) 1950 Medicare Annual Wellness Visit 1950 Mammogram 1950 Cholesterol 1995 Zoster/Shingles (1 of 2) 02/20/2000 DTaP/Tdap/Td (1 - Tdap) 07/11/2000 07/10/2000 Dexa 2015 COVID-19 Vaccine ( season) 2023 11/11/2020, 08/13/2020 Influenza (#1) 2024 06/06/2017, 1109/2015, 04/26/2015, Additional history exists Pneumococcal 65+ Yrs Completed 06/06/2017, 04/11/2016, 07/21/2008, Additional history exists HepA Aged Out No longer eligi ble based on patient's age to complete this topic HepB Aged Out No longer eligi ble based on patient's age to complete this topic Hib Aged Out No longer eligi ble based on patient's age to complete this topic IPV (Polio) Aged Out No longer eligi ble based on patient's age to complete this topic MCV4 Aged Out No longer eligi ble based on patient's age to complete this topic Care Teams Salt Manager Relationship Specialty Start Date End Date Unassigned, Provider [address] [place] [address] PCP - General 11/26/01
--- OUTSIDE RECORDS SUMMARY | 2024-03-24 12:40 | XMS_ITS | Encounter Summary ---
Author Organization [place] Address [address] [place] [address] Care Team Providers Care Anthropology Professor Name Role Phone No Ref-Primary, Physician Primary Care Provider Ursula Braga MD Unavailable + [phone] Ursula Braga MD Unavailable + [phone] Ursula Braga MD Unavailable + [phone] Madonna Lombardi Primary Care Provider [phone] Madonna Lombardi Unavailable [phone] Reason for Visit * Reason Onset Date Comments Symptoms 01/14/2023 Numbness of enti re left side Encounter Details Date Type Department Care Team (Late st Contact Info) Description 01/14/2023 Telephone [facility] [address] [address] Ursula Braga MD [address] [place] [address] [phone] Symptoms (Numbness of entire left side) Social History Tobacco Use Types Packs/Day Years Used Date Smoking Tobacco: Former Cigarettes Smokeless Tobacco: Never Comments:Quit in 1995 PHQ-2 Answer Date Recorded PHQ-2 Score 0 11/05/2022 Sex and Gender Information Value Date Recorded Sex Assigned at Not on file Gender Identity Not on file Sexual Orientation Not on file documented as of this encounter Miscellaneous Notes * Telephone Encounter - Ursula Braga MD - 01/15/2023 12:36 PM CDT Agree w recommendations Thanks Ursula Braga MD on 01/15/2023 at 12:36 PM * Telephone Encounter - Eleazar Farmer RN - 01/15/2023 11:05 AM CDT RN reviewed 01/11 ED notes- pt was concerned about stroke as she had been having L sided numbness for about 1 week at time of ED visit. Stroke neurology consulted and recommended admission for work up, imaging in Aug showed chronic infarcts. Pt declined admission and left AMA with daughter on 01/11. I spoke to Myriam at length, her BP continues to be elevated 160s/90s on increased doses of Valsartan, currently taking 160mg daily. Does not know if she is taking hydrochlorothiazide. She has not hadany improvement in L sided numbness, continues to affect left leg/foot, left hand, left trunk and left face. She denies any new or additional neurological changes that are not baseline. I advised that she return to ED for work up and admission if still indicated. She is agreeable. Routing to provider as SLOAN. Eleazar Farmer RN, BSN [facility] Neurology * Telephone Encounter - Wendy Webster - 01/14/2023 10:16 AM CDT [facility] Phone Message May a detailed message be left on voicemail: yes Reason for Call: Symptoms or Concerns If patient has red-flag symptoms, warm transfer to triage line Current symptom or concern: numbness of entire left side Symptoms have been present for: 3 days Has patient previously been seen for this? Yes By : Bruno ED Date: 01/11/23 Are there any new or worsening symptoms? Yes: Myriam stated that when she was discharged from [facility], they informed her that her symptoms are not stroke related. Myriam is unsure of why she is experiencing the left sided numbness and is inquiring if she is needing another MRI. Myriam is requesting a call back to her daughter Shakila at [phone]. 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 Office Visit [facility] [address] [phone] Ursula Braga MD [address] [place] [address] [phone] documented as of this encounter Visit Diagnoses Not on filedocumented in this encounter Care Teams Anthropology Professor Relationship Specialty Start Date End Date No Ref-Primary, Physician PCP - General 05/28/22 08/11/23 Madonna Lombardi [address] [place] [phone] PCP - General Internal Medicine 08/12/23 Ursula Braga MD [address] [place] [address] [phone] Neurology 08/07/22 Ursula Braga MD [address] [place] [address] Neurology 09/19/22 Ursula Braga MD [address] [place] [address] Assigned Neuroscience Provider 11/10/22 Madonna Lombardi [address] [place] [address] Internal Medicine 09/25/23 documented as of this encounter
--- OUTSIDE RECORDS SUMMARY | 2024-03-24 12:40 | XMS_ITS | Encounter Summary ---
Author Organization [place] Address [address] [place] [address] Care Team Providers Care Customer Service Analyst Name Role Phone Ursula Braga MD Unavailable + [phone] Ursula Braga MD Unavailable + [phone] Ursula Braga MD Unavailable + [phone] Madonna Lombardi Primary Care Provider [phone] Madonna Lombardi Unavailable [phone] Encounter Details Date Type Department Care Team (Latest Contact Info) Description 01/13/2024 Travel Social History Tobacco Use Types Packs/Day Years [...] on file documented as of this encounter Plan of Treatment Upcoming Encounters Date Type Department Care Team (Late st Contact Info) Description 07/16/2024 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 Office Visit [facility] [phone] [place] [address] Ursula Braga MD [address] [place], [place] [phone] documented as of this encounter Visit Diagnoses Not on filedocumented in this encounter Care Teams Customer Service Analyst Relationship Specialty Start Date End Date Madonna Lombardi [address] [place] [address] PCP - General Internal Medicine 08/12/23 Ursula Braga MD [address] [place], [place] [phone] Neurology 08/07/22 Ursula Braga MD [address] [place] [address] 878995 Neurology 09/19/22 Ursula Braga MD [address] [place], [place] [phone] Assigned Neuroscience Provider 11/10/22 Madonna Lombardi [address] [place] [address] Internal Medicine 09/25/23 documented as of this encounter
--- OUTSIDE RECORDS SUMMARY | 2024-03-24 12:40 | XMS_ITS | Referral Summary ---
Author Organization [place] Address [address] [place] [address] Care Team Providers Care Connie Scratcher Name Role Phone Ursula Braga MD Unavailable + [phone] Ursula Braga MD Unavailable + [phone] Ursula Braga MD Unavailable + [phone] Madonna Lombardi Primary Care Provider [phone] Madonna Lombardi Unavailable [phone] Encounters Date Type Department Care Team Description 01/13/2024 Travel 01/13/2024 11:00 AM CDT Office Visit [facility] Neurology Clinic [address] [phone] Ursula Braga MD MS (multiple sclerosis) (H) (Primary Dx); Spastic quadriplegia (H); Respiratory failure, chronic neuromuscular (H) from Last 3 Months Allergies Active Allergy Reactions Criticality Noted Date [...] Respiratory failure, chronic neuromuscular 11/06 Meningioma 11/06/2022 Social History Tobacco Use Types Packs/Day Years [...] st Contact Info) Description 07/16/2024 11:00 AM CLINICAL DATA RESEARCH Office Visit [facility] Neurology [facility] [address] [address] Ursula Braga MD [address] [place] [address] [phone] Procedures Procedure Name Priority Date/Time Associated Diagnosis Comments LIPID REFLEX TO DIRECT LDL PANEL Routine 11/05/2022 4:48 PM CDT Cerebrovascular accident (CVA) due to occlusion of small artery (H) BASIC METABOLIC PANEL Routine 02/10/2009 3:32 PM CDT from Last 3 Months or Most Recently Relevant to Health Maintenance Results * (ABNORMAL) Lipid panel reflex to direct LDL Fasting (11/05/2022 4:48 PM CDT) Cholesterol 332(H) <=199 mg/dL 11/05/2022 5:09 PM CDT [facility] Triglycerides 105 <=149 mg/dL 11/05/2022 5:09 PM T [facility] Direct Measure HDL 86 >=50 mg/dL 11/05/2022 5:09 PM CDT [facility] Comment: HDL Cholesterol Reference Range: 0-2 years: No reference ranges established for patients under 2 years old ??at [facility] for lipid analytes. 2-8 years: Greater than 45 mg/dL 18 years and older: Female: Greater than or equal to 50 mg/dL Male: ?? Greater than or equal to 40 mg/dL LDL Cholesterol Calculated 225(H) <=129 mg/dL 11/05/2022 5:09 PM CDT [facility] Patient Fasting > 8hrs? No 11/05/2022 5:09 PM CDT [facility] Blood BLOOD SPECIMEN / Unknown Venipuncture / Unknown 11/05/2022 4:48 PM CDT 11/05/2022 4:48 PM CDT Ursula Braga MD LAB - BLOOD OR DERABLES Performing Organization Address City/[facility]/ZIP Co de Phone Number [facility] [address] [place] [address], [facility] [phone] * Basic metabolic panel (02/10/2009 3:32 PM [...] Recently Relevant to Health Maintenance Care Teams Connie Scratcher Relationship Specialty Start Date End Date Madonna Lombardi 100 [facility] [place] [phone] PCP - General Internal Medicine 08/12/23 Ursula Braga MD [address] [place] [address] Neurology 08/07/22 Ursula Braga MD [address] [place] [address] Neurology 09/19/22 Ursula Braga MD [address] [place] [address] Assigned Neuroscience Provider 11/10/22 Madonna Lombardi 100 [facility] [place] [phone] Internal Medicine 09/25/23
--- OUTSIDE RECORDS SUMMARY | 2024-03-24 12:40 | XMS_ITS | Encounter Summary ---
Author Organization [place] Address [address] [place] [address] Care Team Providers Care Magisterial District Judge Name Role Phone Ursula Braga MD Unavailable + [phone] Ursula Braga MD Unavailable + [phone] Ursula Braga MD Unavailable + [phone] Madonna Lombardi Primary Care Provider [phone] Madonna Lombardi Unavailable [phone] Reason for Visit * Reason Comments Follow Up MS Encounter Details Date Type Department Care Team (Late st Contact Info) Description 01/13/2024 11:00 AM CDT Office Visit [facility] [address] [address] Ursula Braga MD [address] [place] [address] MS (multiple sclerosis) (H) (Primary Dx); Spastic quadriplegia (H); Respiratory failure, chronic neuromuscular (H) Social History Tobacco Use Types Packs/Day Years [...] on file documented as of this encounter Last Filed Vital Signs Vital Sign Reading Time Taken Comments Blood Pressure 176/89 01/13/2024 11:11 AM CDT Pulse 63 01/13/2024 11:11 AM CDT Temperature - - Respiratory Rate - - Oxygen Saturation - - Inhaled Oxygen Concentration - - Weight - - Height - - Body Mass Index - - documented in this encounter Patient Instructions * Patient Instructions* Ursula Braga MD - 01/13/2024 11:00 AM CDT You report that brain fog and progression of weakness are main problems We discussed how the brain fog can be related to you not getting enough oxygen I strongly encourage you to wear your mask at night I have also recommended a trial of prednisone - Monitor to see if you have less brain fog, if you can move your arms a bit better -- if these changes occur, keep track of how long the effect lasts If benefit from steroids lasts more than 2 weeks, then I will continue a monthly prescription Follow up in about 6 months documented in this encounter Progress Notes * Ursula Braga MD - 01/13/2024 11:00 AM CDT Date of Service: 01/13/2024 [facility] Neurology MS Clinic Evaluation Subjective: 73-year-old very pleasant woman who presents for evaluation of multiple sclerosis. She also has a history of meningioma status post excision, she has placement of a black baclofen pump for management of chronic spasticity, she has a suprapubic catheter and colostomy for neurogenic bladder and bowel, she has osteoporosis, and restrictive lung disease. Many of these are complications ofher chronic multiple sclerosis. She presents today accompanied by her , Bassam, who assists in providing some of the history. Additional history is obtained from reviewing the outside medical record. She reports that since her last visit her breathing is getting worse. She also notices some brain fog. This seems to come and go. It can be debilitating when it occurs. She does not feel like herself. She feels disconnected. It was happening a few times per month, but is now happening at least once a week. She feels that her right arm is getting weaker. She is having more difficulty operating her wheelchair. She also notices an increase in spasticity despite the addition of oral baclofen with baclofen pump. She struggles to swallow. She is managing this by taking smaller bites. Disease onset: Early 30s, right optic neuritis, numbness in the lower extremities Last relapse: Uncertain DMD history: Avonex for 3 years, discontinued due to flulike side effects Copaxone in 1999 for several years Allergies Allergen Reactions Other (Do Not Use) Hives Sulfa--Hives Dilontin--Throat swells Hydromorphone Other reaction(s): Tongue Swelling Other Drug Allergy (See Comments) Headache Other reaction(s): Edema She had stress test 11/24/2008 and what ever she received for this made her tongue swell and slowed her ability to breath. She also got a headache which is same today as then. Phenytoin Other reaction(s): Tongue Swelling Sulfa Antibiotics Hives Hives Teriparatide Other reaction(s): Chest Pain Had reaction 2009 and 2011 consisting of fatigue and chest tightness Sulfamethoxazole-Trimethoprim Rash Current Outpatient Medications Medication Sig Dispense Refill albuterol (VENTOLIN HFA) 108 (90 Base) MCG/ACT inhaler Inhale 2 puffs into the lungs every 4 hours as needed baclofen (LIORESAL) 10 MG tablet TAKE ONE TABLET BY MOUTH TWICE A DAY NEEDED FOR SPASTICITY. baclofen (LIORESAL) 500 mcg/mL injection 3.9521 mcg/hr by Intrathecal route buPROPion (WELLBUTRIN XL) 150 MG 24 hr tablet Take 1 tablet by mouth daily cephALEXin (KEFLEX) 250 MG capsule Take 250 mg by mouth daily TAKE ONE CAPSULE BY MOUTH EVERY DAY NEEDED FOR PROPYLAXIS furosemide (LASIX) 40 MG tablet Take 40 mg by mouth as needed hydrochlorothiazide (HYDRODIURIL) 25 MG tablet Take 1 tablet by mouth daily ibuprofen (ADVIL/MOTRIN) 200 MG tablet Take 400 mg by mouth every 8 hours as needed for pain levothyroxine (SYNTHROID/LEVOTHROID) 125 MCG tablet TAKE ONE TABLET BY MOUTH EVERY DAY BEFORE BREAKFAST. Multiple Vitamin (ONE-A-DAY ESSENTIAL) TABS Take 1 tablet by mouth daily polyethylene glycol (MIRALAX) 17 GM/Dose powder Use daily as needed valsartan (DIOVAN) 80 MG tablet Take 80 mg by mouth 2 times daily No current facility-administered medications for this visit. Past medical, surgical, social and family history was personally reviewed. Pertinent details noted above. Physical Examination: BP (!) 176/89 (BP Location: Right arm, Patient Position: Sitting, Cuff Size: Adult Regular) Pulse63 General: no acute distress Cranial nerves: VFFC EOM full w/no SUNITHA Face symmetric Hearing intact spastic dysarthria with frequent pauses for breath Motor: Tone is normal Bulk is normal R L Deltoid 2 2 Biceps 5 4 Triceps 4 2 Wrist ext 4- 1 Finger ext 1 1 Finger abd 0 0 Reflexes: reduced t/o, +ankle clonus R Tests/Imaging: JCV Ab 3.3 MRI Brain 2022 - stable burden of predominantly periventricular lesions and few juxta cortical lesions, faintbrainstem lesions, +two areas of small vessel stroke in the left subcortical region 11/2023 - per radiology report - no new lesions and no new strokes MRI Cervical spine 2014- multiple eccentric faint lesions t/o the upper cervical spinal cord with polyfocal atrophy MRI Thoracic spine 2014 - few faint lesions Assessment: 73-year-old woman with a 40-year history of multiple sclerosis who is presenting with progressive spastic quadriplegia. She has suffered many complications of her multiple sclerosis including restrictive respiratory failure, neurogenic bladder, neurogenic bowel, and debilitating spasticity. She is entirely paraplegic and has nearly lost all function of her upper extremities. She has dysphagia that puts her at increased risk for aspiration pneumonia. Today we discussed how her respiratory impairment can contribute to her brain fog. She is strongly encouraged to wear her trilogy during sleep. She currently only uses it for 1 hour during the day. When she was seen by pulmonology she was encouraged to wear it more often as well. She is noticing an increase in spasticity and decline in motor function. We discussed how a trial of prednisone may be beneficial. I do have patients in the progressive phase of the disease to benefit from pulsed steroids. I think that Wil steroids would be a more reasonable option given her risk for infection. Any long-term MS medication will leave her immune suppressed for several months. Common risks and side effects associated with prednisone were discussed in detail. Plan: -Prednisone trial, consider monthly prednisone 500 mg daily for 2 days - Encouraged trilogy use - Follow-up in 6 months Note was completed with the assistance of Bring[employer] Fluency software which can often result in accidental word substitutions. A total of 37 minutes on the date of service were spent in the care of this patient. Ursula Braag MD on 01/13/2024 at 11:29 AM documented in this encounter Nursing Notes * Arnulfo Anderson MA - 01/13/2024 11:00 AM CDT Chief Complaint Patient presents with Follow Up MS Arnulfo AndersonJEANNETTEStevo on 01/13/2024 at 11:11 AM documented in this encounter Plan of Treatment Upcoming Encounters Date Type Department Care Team (Late st Contact Info) Description 07/16/2024 11:00 AM BELLHOP SERVICE CAPTAIN Office Visit [facility] [address] [phone] Ursula Braga MD [address] [place] [address] [phone] documented as of this encounter Visit Diagnoses Diagnosis MS (multiple sclerosis) (H)- Primary Multiple sclerosis Spastic quadriplegia (H) Quadriplegia, unspecified Respiratory failure, chronic neuromuscular (H) Chronic respiratory failure documented in this encounter Care Teams Magisterial District Judge Relationship Specialty Start Date End Date Madonna Lombardi [address] [place] [phone] PCP - General Internal Medicine 08/12/23 Ursula Braga MD [address] [place] [address] [phone] Neurology 08/07/22 Ursula Braga MD [address] [place] [address] Neurology 09/19/22 Ursula Braga MD [address] [place], [place] 888755 Assigned Neuroscience Provider 11/10/22 Madonna Lombardi [address] [place] [phone] Internal Medicine 09/25/23 documented as of this encounter
--- OUTSIDE RECORDS SUMMARY | 2024-03-24 12:41 | XMS_ITS | Continuity of Care Document ---
Author Organization [facility] Address [address] [place] [address] Phone Care Team Providers Care Restoration Ecologist Name Role Phone Richard Paulino Unavailable Unavailable Allergies, Adverse Reactions, Alerts Substance Reaction Status Criticality sulfanilamide Active No Information Medications Medication Instructions Dosage Effective Dates (start - stop) Status Comments prednisone 5 mg tablet take 2 tabs po bid x 7 days, then 1 tab po bid x 7 days, then 1 tab po qd x 7 days - Active WELLBUTRIN (unknown strength) Not Available - Active Procedures Procedure Date Office/Outpatient Visit,New, Mod 2022 Office/Outpatient Visit,Est, Mod 2012 X-Ray Exam Of Neck Spine, 4+ Views Office/outpatient visit,est, mod 2007 X-ray exam of total spine Office/outpatient visit,est, mod 2007 Office consultation, moderate 7 Advance Directives Directive Yes / No Effective Date File Name No Information Encounters Encounter Description Practice Location Reason(s) For Visit Diagnoses Date Provider Providers Copied on Encounter Office/Outpa tient Visit,New, Mod [facility], [address], [place], [place], [id number], [place] tel:[phone] [facility] [place] Pain in left legSpinal stenosis, lumbar region without neurogenic claudication 3 Jon Ramos. [facility], [address], [address], [place], [place], [id number], [place]. tel:[phone] Referring Provider: Richard Strauss, [facility] [address] [place] [address], [address], [place], [address]. tel:[phone] Office/Outpa tient Visit,Est, Mod Z [facility], [address], [place], [place], [facility], [place] tel:[phone] [facility] - [place] [facility] [address] Reynal[address] Mike. [facility], [address] [place] [address], [address], [place], [place], [id number], [place]. tel:[phone] Referring Provider: Jazzmine Vasquez [facility] [address], [facility]. tel:[phone] Office/outpa tient visit,est, mod Z [facility], [address], [facility], [place] tel:[phone] [facility] - [facility] No Information 0 8 Reynaldo Mike. [facility], [address] [place] [address], [address], [place], [place], [id number], [place]. tel:[phone] Office/outpa tient visit,est, mod Z [facility], [address] [place] [address], [facility], [place] tel:[phone] [facility] No Information 8 No Information Office consultation , moderate Z [facility], [address] [place] [address], [facility], [place] tel:[phone] [facility] - [facility] No Information 7 No Information Family History Family Member Type Diagnosis Age At Onset Problem (finding) Payers Payer name Insurance type Covered constitution party ID Zonia yin(s) [facility] [id number] Medicare [facility] [id number] 1 Social History Type Description Quantity Date Captured Comments Alcohol Use Details Unknown Caffeine Use Details Unknown Tobacco Use Status Smoking Status No Information Sex Female Chief Complaint And Reason For Visit No [...] mation No Information Assessments Type Assessment Date assessment Pain in left leg assessment Spinal stenosis, lumbar region w ithout neurogenic claudication Patient Care Teams Name Effective Dates (start - stop) Status Members No Information
--- OUTSIDE RECORDS SUMMARY | 2024-03-24 12:42 | XMS_ITS | Clinical Summary ---
Author Organization [facility] Address [address] [place] [address] Care Team Providers Care Bankman Name Role Phone Unavailable Primary Care Provider Unavailabl e Source Comments Patient records contain information from all sites at [facility]. For routine questions regarding patient records, call [phone] during business hours, M-F 8:00 AM - 5:00 PM Central Time. 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 Benign Neoplasm Of Meninges Unspecified 11/27/19 09 Hypothyroidism 11/26/2008 Neurogenic Bladder 11/26/2008 Overview (08/06/2022): Suprapubic catheter placed 06/2012 Neurogenic Bowel 11/26/2008 Overview (08/06/2022): S/p Colostomy Osteoarthritis 11/26/2008 Multiple Sclerosis 08/26/2008 Other Secondary Scoliosis Site Unspecified 09/16 Immunizations Name Administration Dates Next Due Influenza, Unspecified 05/28/2013,07/13/2010, PPSV23 08/17/2005 Td Preservative Free (TENIVAC, DECAVAC) 07/10/20 00 Family History Medical History Relation Name Comments Skin cancer Sister Relation Name Status Comments Sister Social History Tobacco Use Types Packs/Day Years Used Date Smoking Tobacco: Former Nutrition Answer Date Recorded Nutrition: EVOO Fat Source Unknown 08/07 Nutrition: Servings of Fruits/Vegetables per Day Not on file 08/07/2022 Dental Answer Date Recorded Dental: Regular Dentist Unknown 08/07/19 Sex and Gender Information Value Date Recorded Sex Assigned at Not on file Gender Identity Not on file Sexual Orientation Not on file Last Filed Vital Signs Vital Sign Reading Time Taken Comments Blood Pressure 127/73 05/02/2017 2:34 PM CDT Pulse 91 05/02/2017 2:34 PM CDT Temperature - - Respiratory Rate 20 02/15/2014 10:56 AM CDT Oxygen Saturation - - Inhaled Oxygen Concentration - - Weight 68 kg (149 lb 14.6 oz) 10/09/2013 11:59 A M CDT Height 167 cm (5' 5.75) 05/02/2017 2:06 PM CDT Body Mass Index 24.38 10/09/2013 11:59 AM CDT Plan of Treatment Health Maintenance Due Date Last Done Comments CT Colonography 1950 Cologuard 1950 Depression Monitoring (PHQ-9) 1950 FIT 1950 Hepatitis C Screening 1950 Zoster Vaccines (1 of 2) 02/20/2000 DTaP,Tdap,and Td Vaccines (1 - Tdap) 07/11/2000 07/10/2000 Mammogram 11/09/2010 11/09/2009 Colonoscopy 03/20/2020 03/20/2010 Colorectal Cancer Screening 03/20/2020 Fall Risk Screen (Annual) 07/22/2023 COVID-19 Vaccine (5 - 2022-2 4 season) 2023 06/19/2023, 05/18/2021, 11/11/2020, Additional history exists Influenza Vaccine (#1) 2024 7, 05/24/2016, 04/26/2015, Additional history exists Fasting Glucose for Diabetes Screening 08/06/2025 08/06/2022, 05/14/2022, 06/14/2021, Additional history exists Pneumococcal vaccine (65+ years) Completed 06/06/2017, 04/11/2016, 07/21/2008, Additional history exists Procedures Procedure Name Priority Date/Time Associated Diagnosis Comments BASIC METABOLIC PANEL, S/P Routine 05/05/2013 8:56 AM CDT BI BREAST SCREENING BILATERAL Routine 11/09/2009 10:18 AM CDT from Last 3 Months or Most Recently Relevant to Health Maintenance Results * (ABNORMAL) BMP (Basic Metabolic Panel) (05/05/2013 8:56 AM CDT) BUN (Blood Urea Nitrogen), S 15 6 - 20 MGDL POWERCHART Creatinine <0.5(L) 0.7 - 1.2 MGDL POWERCHART Potassium, S 4.4 3.5 - 4.8 MMOLL POWERCHART Sodium, S 143 135 - 145 MMOLL POWERCHART Chloride, S 106 100 - 108 MMOLL POWERCHART CO2 Total 27 22 - 29 MMOLL POWERCHART Calcium, Total, S 9.8 8.5 - 10.5 MGDL POWERCHART eGFR Black/ >60 MLMIN POWERCHART Glucose, Fasting, S 90 70 - 99 MGDL POWERCHART HXeGFR (MDRD) >60 MLMIN POWERCHART Blood 05/05/2013 8:56 AM CDT Bishop Jerome M.D. LAB BLOOD ADD-ON POWERCHART * BI Breast Screening Bilateral (11/09/2009 10:18 AM CDT) Anatomical Region Laterality Modality Breast Bilateral Mammography 11/09/2009 10:1 8 AM CDT Impressions 11/10/2009 3:49 PM CDT No suspicious interval change, no radiographic evidence of malignancy. Recommend regular yearly screening mammography in this age group. ?? ACR code: 1, negative mammogram. Narrative 11/10/2009 3:49 PM CDT HISTORY: Routine screening. ?? COMPARISON: 12/02/2000. ?? FINDINGS: Breasts are of intermediate radiographic density with scattered benign appearing calcifications. No suspicious dominant mass or clustered microcalcifications suspicious for malignancy. No suspicious interval change compared with 12/02/2000. ?? CAD was utilized in the interpretation of this exam. ?? Procedure Note Rommel Turner Jr., M.D. - 12/13/2016 HISTORY: Routine screening. COMPARISON: 12/02/2000. FINDINGS: Breasts are of intermediate radiographic density with scattered benign appearing calcifications. No suspicious dominant mass or clustered microcalcifications suspicious for malignancy. No suspicious interval change compared with 12/02/2000. CAD was utilized in the interpretation of this exam. IMPRESSION: No suspicious interval change, no radiographic evidence of malignancy. Recommend regular yearly screening mammography in this age group. ACR code: 1, negative mammogram. González Kahn(Jeremias) IMG BI PROCEDURES from Last 3 Months or Most Recently Relevant to Health Maintenance
--- OUTSIDE RECORDS SUMMARY | 2024-03-24 12:42 | XMS_ITS | Data Portability ---
Author Organization [facility], [facility] Address [address] [place] [address] Care Team Providers Care Emergency Technician Name Role Phone MUMTAZ MORENO Referring Provider [phone] Assessment No assessment recorded. Plan of Treatment Reminders Order Date Submit Date Provider Last Modified By Organization Details Last Modified Time Details Appointments None record ed. Lab None record ed. Referral None record ed. Procedures None record ed. Surgeries None record ed. Imaging None record ed. Medication Orders None record ed. Patient TargetsNo targets recorded. Patient Instructions Encounter Date Encounter Id Patient Instructions Last Modified By Organization Details Last Modified Time 02/22/2020 patient w ngb. s p tube in place. will upsize to 18fr at next change. btareen Not available 02/22/2020 14:20:47 Reason for Referral None Reported. 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 Procedures Surgical History Date Name Laterality Status Provider Name and Address Organization Details Recorded Time 12/05/19 12 Unlisted px urinary system completed Not Available [facility] 12/31/2019 11:39:15 03/29/20 10 Unlisted px urinary system completed Not Available [facility] 12/31/2019 11:39:15 03/03/20 09 Unlisted px urinary system completed Not Available [facility] 12/31/2019 11:39:15 04/23/20 08 Unlisted px urinary system completed Not Available [facility] 12/31/2019 11:39:15 07/03/20 06 Unlisted px urinary system completed Not Available [facility] 12/31/2019 11:39:15 07/22/18 78 Total hysterectomy completed Not Available [facility] 12/31/2019 11:39:15 Imaging Results None recorded. Procedure Notes None recorded. Medical Equipment None Reported. Allergies Allergen ID Allergen Name Allergen Category Reaction Reaction Severity Criticality Documentation Date Start Date Code Code System Note Provider Name and Address Organization Details Recorded Time 213605 hydromorp iman medicatio n Not available Not available Not available 12/31/2019 3423 RxNorm Not Available [facility] 0 00:05:10 [id number] teriparat emily Not available Not available Not available Not available 12/31/2019 31026 RxNorm Not Available [facility] 0 00:05:10 [id number] phenytoin medicatio n Not available Not available Not available 12/31/2019 8183 RxNorm Not Available [facility] 0 00:05:10 Medications Name Sig Start Date Stop Date Status Note LastModified by Organization Details LastModified Time furosemide 40 mg tablet Take 1 tablet every day by oral route. active Not Available Not Available No t Available levothyroxin e 125 mcg tablet Take 1 tablet every day by oral route. active Not Available Not Available No t Available albuterol sulfate active Not Available Not Available Not Available multivitamin active Not Available Not Available Not Available baclofen 10,000 mcg/20 mL (500 mcg/mL) intrathecal solution Inject by intrathecal route. active Not Available Not Available No t Available bupropion HCl 150 mg tablet,12 hr sustained-re lease(smokin g deterrent) Take 1 tablet twice a day by oral route. active Not Available Not Available No t Available Vitals None Recorded Social History Question Answer Notes LastModified by Organizat ion Details LastModified Time Tobacco Smoking Status Former Smoker Not Available [facility] 12/31/2019 03:26:09 What Is Your Level Of Alcohol Consumption? Occasional Information not available 12/31/2019 What Is Your Level Of Caffeine Consumption? Moderate Information not available 02/22/2020 Race White Information n ot available 12/31/2019 Recreational Drug Use No Information not available 02/22/2020 Marital Status Informati on not available 12/31/2019 Do You Or Have You Ever Used Smokeless Tobacco? Never Used Smokeless Tobacco Information not available 02/22/2020 How Many Years Have You Smoked Tobacco? 20 Information not available 12/31/2019 Sex: Unknown Functional Status None recorded. Mental Status None recorded. Family History Nothing Reported. Medical History No medical history recorded. Gynecological HistoryNo gynecological history recorded. Obstetrics History GPAL:G 0 P 0 0 0 0 Past Encounters Encounter ID Performer Location Encounter Start Date Encounter Closed Date Diagnosis/Indication Diagnosis SNOMED-CT Code Diagnosis ICD10 Code [id number] Liyah Bella MD [facility] [address] [place] [address] 02/22/2020 13:56:13 02/22/2020 16:44:02 Neurogenic dysfunction of urinary bladder 884706172 N31.9 Uninhibite d neurogenic urinary bladder 367016934 N31.0 Health Concerns Section Related Observation LastModified by Organization Detai ls LastModified Time None Recorded Concern Status LastModified by Organization Details LastModified Time None Recorded Advance Directives Directive None Recorded Payers Encounter Date Sequence Insurance Name Policy Number Policy Pate Covered Member ID Pate Member ID Guarantor Name 02/22/2020 1 [facility] [id number] Myriam Carter [id number] Myriam Carter Notes Date Note Type Note Provider Name and Address Organization Details Recorded Time 02/22/2020 text/html HPI Notes: patient w history of sp tube. had most recently changed 2 weeks ago. Liyah Bella MD [address], [place], [address], [facility] 02/22/2020 14:21:25 OBGyn Episode No OBEpisode recorded.
--- OUTSIDE RECORDS SUMMARY | 2024-03-24 12:42 | XMS_ITS | Referral Summary ---
Author Organization [facility] Address [address] [place] [address] Care Team Providers Care Machine Rope Maker Name Role Phone Madonna Mclaughlin MD Primary Care Provider [phone] Allergies Active Allergy Reactions Criticality Noted Date Comments Sulfa (Sulfonamide Antibiotics) 01/19 Hives Medications Medication Sig Dispensed Refills Start Date End Date Status furosemide (LASIX) 40 mg oral tablet Take 40 mg by mouth once daily. Active levothyroxine (SYNTHROID) 125 mcg oral tablet Take 125 mcg by mouth Once Daily. Active buPROPion SR (WELLBUTRIN SR) 150 mg oral sustained release tablet 12 HR Take 150 mg by mouth Twice a Day. Active baclofen (LIORESAL) 10 mg oral tablet Take by mouth four times a day. Active albuterol HFA (PROVENTIL;VENTOLIN HFA) 90 mcg/actuation Inhl inhaler Inhale 2 puffs every 4 (four) hours as needed. Active Active Problems No known active problems Social History Tobacco Use Types Packs/Day Years Used Date Smoking Tobacco: Former Sex and Gender Information Value Date Recorded Sex Assigned at Not on file Gender Identity Not on file Sexual Orientation Not on file Last Filed Vital Signs Vital Sign Reading Time Taken Comments Blood Pressure 104/68 03/27/2017 11:36 AM CDT Pulse 74 03/27/2017 11:36 AM CDT Temperature - - Respiratory Rate - - Oxygen Saturation 95% 03/27/2017 11:36 AM CDT Inhaled Oxygen Concentration - - Weight 63.5 kg (140 lb) 03/27/2017 11:36 AM CDT Height 167.6 cm (5' 6) 03/27/2017 11:36 AM CDT Body Mass Index 22.6 03/27/2017 11:36 AM CDT Plan of Treatment Not on file Care Teams Machine Rope Maker Relationship Specialty Start Date End Date Madonna Mclaughlin MD [address] [place] [address] SHANIKA FOFANA [id number] PCP - General Internal Medicine 01/07/17
--- OUTSIDE RECORDS SUMMARY | 2024-03-24 12:42 | XMS_ITS | Clinical Summary ---
Author Organization [facility] Address [place], [place] [address] Care Team Providers Care Electric Organ Assembler And Checker Name Role Phone Madonna Mclaughlin MD Primary Care Provider [phone] [facility], [place] Unavailable [phone] Junaa Nava Unavailable Unavailable Pamela Rivera RN Unavailable Xenia Acosta MD Unavailable Bethany Hernández RN Unavailable [phone] Pia Hirsch MD Unavailable [phone] Allergies Active Allergy Reactions Criticality Noted Date Comments Sulfamethoxazole-Trimetho prim Rash 11/23/2008 Phenytoin Tongue Swelling 09/30/2011 Hydromorphone Tongue Swelling Medium 07/24/2010 Unlisted Allergen (Include Detail In Comments) Edema,Headache 11/25/2008 She had stress test 11/24/2008 and what ever she received for this made her tongue swell and slowed her ability to breath. She also got a headache which is same today as then. Sulfa (Sulfonamide Antibiotics) Hives 08/14/2005 Teriparatide Chest Pain 08/08/2011 Had reaction 2009 and 2011 consisting of fatigue and chest tightness Medications Medication Sig Dispensed Refills Start Date End Date Status multivitamin (MVI) tablet Take 1 tablet by mouth once daily. Active Syringe, Reusable, 10 mL syrrIndications:Suprapu bic catheter (HC) Use as directed. 16 Syringe 11 05/05/20 18 Active polyethylene glycoL (MIRALAX) 17 gram/dose powderIndications:Chron ic constipation MIX 17GM IN 4-8 OUNCES OF JUICE OR WATER AND DRINK BY MOUTH ONCE A DAY 3 jar 3 07/10/20 18 Active miscellaneous medical supply miscIndications:Suprapu bic catheter (HC) Indwelling Joseph catheter 16 F 5 cc balloon. Use as directed. 4 Each 11 05/17/20 21 Active Ostomy Supplies miscIndications:S/P colostomy (HC) As directed. Coloplast ostomy pouch 6 boxes (60 pouches per month) 60 Each 11 07/23/19 23 Active hydroCHLOROthiazide (HCTZ) 25 mg tabletIndications:Essen tial hypertension Take 1 Tablet (25 mg) by mouth once daily. 90 Tablet 3 08/31/19 23 Active Ventolin HFA 90 mcg/actuation inhalerIndications:SOB (shortness of breath) INHALE TWO PUFFS BY MOUTH EVERY 4 HOURS NEEDED 18 g 5 10/09/19 23 Active baclofen (LIORESAL) 500 mcg/mL intrathecal Inject 110 mcg/day intrathecal continuous. 10/24/2022 Baclofen Telemetry report Active ibuprofen (ADVIL; MOTRIN) 200 mg tablet Take 400 mg by mouth at bedtime. Active Urinary Bag (Urinary Leg Bag) kitIndications:Suprapub ic catheter (HC) Needs more bag changes due to frequent bladder infections and urinary incontinence 4 Kit 11 11/27/19 23 Active levothyroxine (SYNTHROID) 125 mcg tabletIndications:Acqui red hypothyroidism TAKE ONE TABLET BY MOUTH EVERY DAY BEFORE BREAKFAST 90 Tablet 2 07/14/20 23 Active albuterol 0.083% (2.5 mg/3 mL) neb solutionIndications:Ast hma, unspecified asthma severity, unspecified whether complicated, unspecified whether persistent Inhale 3 mL (2.5 mg) via a nebulizer every 4 hours if needed for Shortness Of Breath. 120 mL 08/22/19 24 Active baclofen (LIORESAL) 10 mg tabletIndications:Spast icity Take 1 Tablet (10 mg) by mouth three times daily. 180 Tablet 1 09/19/19 24 Active valsartan (DIOVAN) 80 mg tabletIndications:Essen tial hypertension Take 1 Tablet (80 mg) by mouth once daily. 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 100 Each 10/24/19 24 Active Foam Bandage (Tendra Mepilex Border) 3 X 3 bndgIndications:Pressur e injury of skin, unspecified injury stage, unspecified location Apply topically to affected area(s). medical supply code [id number] 15 Each 11/26/19 24 Active buPROPion (WELLBUTRIN XL) 150 mg Extended-Release tabletIndications:Dysth ymic disorder Take 1 Tablet (150 mg) by mouth once daily. 90 Tablet 1 12/17/19 24 Active Gauze Bandage (Curity Plain Packing Strip) 1/4 X 5 -yard bndgIndications:Pressur e injury of sacral region, stage 2 (HC) Apply topically to affected area(s). 1 Each 01/03/20 24 Active durable medical equipment (DME)Indications:Pressu re injury of sacral region, stage 2 (HC) MedVance TM Silicone - Sacral Bordered Silicone Adhesive Foam Wound Dressing 7x7 or equivelent 30 Each 01/03/20 24 Active cephalexin (KEFLEX) 250 mg capsuleIndications:Urin josue tract infection associated with indwelling urethral catheter, subsequent encounter TAKE ONE CAPSULE BY MOUTH EVERY DAY NEEDED FOR PROPHYLAXIS 90 Capsule 01/28/20 24 Active atorvastatin (LIPITOR) 40 mg tabletIndications:Pure hypercholesterolemia TAKE ONE TABLET BY MOUTH AT BEDTIME 90 Tablet 1 02/07/20 24 Active furosemide (LASIX) 40 mg tabletIndications:Leg swelling TAKE ONE TABLET BY MOUTH EVERY MORNING 90 Tablet 3 03/05/20 24 Active furosemide (LASIX) 40 mg tabletIndications:Leg swelling TAKE ONE TABLET BY MOUTH EVERY MORNING 90 Tablet 08/05/19 24 2023 Discontinued Hospital, Clinic, or Other Facility Administered Medication Ordered Dose Route Frequency Start Date End Date Status baclofen 40,000 mcg/20mL (2,000 mcg/mL) intrathecal kit (GABLOFEN)Indications:Spa stic quadriplegia secondary to multiple sclerosis (HC) 6.4667 mcg/hr cITi CONTINUOUS 09/19/2023 09/16/2024 Active Active Problems Problem Noted Date Diagnosed Date Sensorineural hearing loss, bilateral 11/26/2023 Essential hypertension 06/19/2023 Lacunar infarction 01/15/2023 Overview: 12/2022 MRI: subacute infarction right thalamus, chronic lacunar infarctions UC (ulcerative colitis confined to rectum) 11/08 Neuromuscular weakness 12/14/2021 UTI due to extended-spectrum beta lactamase (ESBL) producing Escherichia coli 06/13/2021 MS (congenital mitral stenosis) 05/30/2021 Asthma 05/30/2021 Dysthymic disorder 03/22/2021 Spastic tetraplegia 09/17/2018 Mammogram declined 06/17/2018 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 10/07/2015 Overview: S/p Baclofen pump placement 2009 Presence of intrathecal baclofen pump 10/07/2015 Respiratory failure, chronic neuromuscular 10/15 Overview: Uses Trilogy noninvasive ventilator one hour per night S/P colostomy 08/11/2014 Disuse osteoporosis 07/25/2012 Meningioma 11/26/2008 MS (multiple sclerosis) 11/26/2008 Hypothyroidism 11/26/2008 OA (osteoarthritis) 11/26/2008 Neurogenic bowel 11/26/2008 Overview: S/p Colostomy Neurogenic bladder 11/26/2008 Overview: Suprapubic catheter placed 06/2012 Scoliosis associated with other condition 2007 Spinal stenosis in cervical region Restrictive lung disease Resolved Problems Problem Noted Date Diagnosed Date Resolved Date Abdominal pain 11/13/2022 06/20/2023 Urinary tract infection asso ciated with indwelling urethral catheter 03/22/2021 07/11/2022 Acute respiratory failure with hypoxemia 06/14/2017 01/07/2019 UTI (urinary tract infection) 06/14/2017 01/07/2019 Acute respiratory insufficiency 06/11/2017 01/07/2019 Chronic constipation 12/15/2014 017 Hypokalemia 10/21/2014 09/26/2016 UTI (urinary tract infection ) due to urinary indwelling Joseph catheter 10/15/2014 07/17/2015 Spasm of muscle 07/02/2012 05/24/2014 UTI (lower urinary tract infection) -Ecoli 07/24/2010 05/24/2014 Headache(784.0) 11/27/2008 09/26/2016 Hyperglycemia 11/26/2008 05/24/2014 Anemia, unspecified 11/26/2008 07/17/20 15 Carpal tunnel syndrome 09/16/200709/26 Hyperlipidemia 09/26/2016 Encounter for screening colonoscopy 06/19/2021 Fecal impaction of colon Encounters Date Type Department Care Team Description 03/24/2024 Nurse Triage [address] [address] Madonna Mclaughlin MD High Blood Pressure 03/17/2024 Patient Outreach [facility] Care Management - Care Management Navigation/[facility] [address] [place] [address] Shakila Ovalles, [facility] Care Management Intake (Social work care management intake outreach./) 03/10/[address] [address] Madonna Mclaughlin MD Letter (medical necessity ) 03/09/[address] [address] Madonna Mclaughlin MD Letter (Organization determination letter) 03/02/2024 1:00 PM CDT Office Visit [facility] [address] [facility] [address] [place] [address] Xenia Acosta MD Baclofen Implantable Pump (Annual) 03/02/2024 12:30 PM CDT - 03/02/2024 11:59 PM CDT Hospital Encounter [facility] [address] [place] [address] 03/02/2024 12:30 PM CDT Office Visit [facility] [address] [facility] [address] [place] [address] Baclofen, Ckru Nurse Baclofen Implantable Pump (Refill) 03/02/2024 Refill [facility] [place] [address] [place] [address] Madonna Mclaughlin MD Refill Request (Furosemide) 03/02/2024 Travel 02/04/[address] [address] Madonna Mclaughlin MD Refill Request (Atorvastatin) 01/31/[address] [place] [address] Madonna Mclaughlin MD wound care 01/26/[address] [phone] Adelia Horne PA Refill Request (Cephalexin) 01/06/[address] [place] [address] Madonna Mclaughlin MD Questions 12/27/2023 11:00 AM CDT Nurse/Clinic Staff Only [address] [address] Education (Wound Care discussion with tree care foreman ) 12/27/2023 Travel from Last 3 Months Immunizations Name Administration Dates Next Due COVID-19 Vaccine Spikevax (M oderna 50mcg/0.5mL) 12YO+ [id number] Formula PF 06/19/2023 Influenza Virus, Unspecified 05/28/2013,07/13/20 10 Influenza, High-dose Inactivated 05/24/2016,10/0 12/2014 Influenza, IIV3 (Age >=3 years) 05/28/20 13,07/13/2010,04/07/2009,2007,05/22/2007,05/22/2006 Influenza, IIV4 05/24/2014 Influenza, Inactivated IIV3 (Age 65+ Years) Preserv Free 06/06/2017 Pneumococcal Poly,23-Valent (Pneumovax) 06/06/2017,07/21/2008,08/17/2005 Pneumococcal conj 13-Valent (Prevnar 13) 04/11/2016 Td (Age >=7 Years) 07/10/2000 Family History Medical History Relation Name Comments Heart Disease Mother heart attack l ate 40's Cancer-breast Sister Relation Name Status Comments Father Alive Mother Alive Sister Alive Social History Tobacco Use Types Packs/Day Years Used Date Smoking Tobacco: Former Cigarettes 0.5 30 1 08/15/1966 - 06/15/1997 Passive Smoke Exposure: Past Smokeless Tobacco: Never Tobacco Cessation:Counseling Given: Not Answered Comments:quit 1996 Alcohol Use Standard Drinks/Week Comments Yes 0 (1 standard drink = 0.6 oz pur e alcohol) occ wine PHQ-2 Answer Date Recorded PHQ-2 TOTAL SCORE 0 08/15/2023 Social Connections Answer Date Recorded Frequency of Communication with Friends and Fami ly Not on file 12/12/2022 Financial Resource Strain Answer Date R ecorded Difficulty of Paying Living Expenses 3 12/11/2021 Difficulty of Paying Living Expenses Not on file 12/11/2021 Food Insecurity Answer Date Recorded Worried About Running Out of Food in the Last Ye ar 1 12/11/2021 Transportation Needs Answer Date Record ed Lack of Transportation (Medical) 1 12/11/2021 Housing Stability Answer Date Recorded Unable to Pay for Housing in the Last Year 1 12/11/2021 Sex and Gender Information Value Date Recorded Sex Assigned at Not on file Gender Identity Not on file Sexual Orientation Not on file Obstetrics History Last Filed Vital Signs Vital Sign Reading Time Taken Comments Blood Pressure 187/86 03/02/2024 12:57 PM CDT Pulse 82 03/02/2024 12:57 PM CDT Temperature 36.1 ??C (97 ??F) 03/02/2024 12: 57 PM CDT Respiratory Rate 16 11/22/2023 12:0 0 PM CDT Oxygen Saturation 97% 03/02/2024 12: 26 PM CDT Inhaled Oxygen Concentration - - Weight 65.8 kg (145 lb) 11/21/2023 10:4 8 AM CDT approximate, unable to obtain today Height 167.6 cm (5' 6) 10/21/2023 3:26 PM CDT Body Mass Index 23.4 10/21/2023 3:26 PM CDT Plan of Treatment Upcoming Encounters Date Type Department Care Team (Late st Contact Info) Description 03/26/2024 1:15 PM CDT Appointment [address] [address] Neris Alvarez, OT [address] [place] [address] 04/23/2024 3:00 PM CDT Procedure Only [facility] [address] [facility] [address] [place] [address] Xenia Acosta MD [address] [facility] [address] [place] [address] 08/17/2024 12:00 PM SALES/MARKETING Office Visit [facility] [address] [facility] [address] [place] [address] Baclofen, Ckru Nurse 08/17/2024 1:00 PM SALES/MARKETING Procedure Only [facility] [address] [facility] [address] [place] [address] Xenia Acosta MD [address] [facility] [address] [place] [address] Health Maintenance Due Date Last Done Comments Tdap 1961 Zoster (shingles) series for age 50+ (1 of 2) 02/20/2000 Tetanus booster 07/10/2010 07/10/2000 Colonoscopy through age 75 03/20/2013 03/20/2010 DEXA/DXA scan for age 65+ 2015 Mammogram for age 45-75 04/30/2020 04/30/2019 COVID-19 vaccine series ( season) 2024 06/19/2023, 05/18/2021, 11/11/2020, Additional history exists Influenza for age 65+ 03/22/2024 06/06/2017 , 05/24/2016, 04/26/2015, Additional history exists Depression screening for age 12+ 08/15/2024 08/15/2023, 07/10/2023, 09/17/2020, Additional history exists BMI (ht and wt on same day) for age 18+ 10/20/2024 10/21/2023, 08/20/2019, 03/12/2018, Additional history exists Medicare Wellness for age 65+ 11/21/2024 11/21/2023 Lipids for age 45-75 06/19/2028 06/19/2023, 09/26/2016, 08/16/2005, Additional history exists Pneumococcal series for age 65+ Completed 06/06/2017, 04/11/2016, 07/21/2008, Additional history exists Hepatitis C screening for ag e 18-79 Completed 06/14/2021 Medical Devices Implanted Type Area Centerless Grinding Machine Adjuster Device Identifier Shelf Expiration Date Model / Serial / Lot Catherine Hole 18mm [id number] - [id number] Implanted:Qty: 5 on 11/25/2008 at [facility] Neuro Implants Cranium [facility] [id number]# / / Dura Durepair [id number] - [id number] Implanted:Qty: 1 on 11/25/2008 at [facility] Medtronic [id number]# / / [id number] 1.6mmx4.0mm Cruciate Self Drilling Implanted:Qty: 21 on 11/25/2008 at [facility] Explanted:at [facility] (Quantity not on file) Cranium [id number] / / Description:1.6MMX4.0MM CRUC IATE SELF DRILLING Intrathecal Catheter Implanted:Qty: 1 on 07/18/2010 at [facility] Explanted:at [facility] (Quantity not on file) Spine Medtronic 06/07/2012 [id number] / [id number] / [id number] 2 Description:INTRATHECAL CATH ETER Pump Synchromed Ii 40ml - [id number] Implanted:Qty: 1 on 07/18/2010 at [facility] Explanted:at [facility] (Quantity not on file) Spine Medtronic 10/03/2011 [id number]# / [id number] H / Drug Pump Spinal 40ml Synchromed Ii - [id number] Implanted:Qty: 1 on 10/02/2016 by Chris Martin MD at [facility] Explanted:at [facility] (Quantity not on file) Right: Abdomen Medtronic Pain Therapy 12/16/2017 [id number]# / [id number] H / Pump Segment Spinal Medtronic Rev - [id number] Implanted:Qty: 1 on 10/02/2016 by Chris Martin MD at [facility] Right: Abdomen Medtronic Pain Therapy [id number]# / / [id number] Envlp Neuro Lg Tyrx Absorb Antibacterial - [id number] Implanted:Qty: 1 on 11/20/2022 by Chris Martin MD at [facility] Right: Abdomen Medtronic 08/08/2023 [id number] / / [id number] Drug Pump Spinal 20ml Synchrom - [id number] Implanted:Qty: 1 on 11/20/2022 by Chris Martin MD at [facility] Right: Abdomen Medtronic Pain Therapy 04/18/2023 [id number] / [id number] H / Pump Segment Spinal Medtronic Rev - [id number] Implanted:Qty: 1 on 11/20/2022 by Chris Martin MD at [facility] Right: Abdomen Medtronic Pain Therapy 03/29/2024 [id number] / / [id number] Explanted Type Area Centerless Grinding Machine Adjuster Device Identifier Shelf Expiration Date Model / Serial / Lot Baclofen Pump Explanted:Qty: 1 on 11/20/2022 by Chris Martin MD at [facility] Description:Baclofen pump re moved and discarded per surgeon preference/hospital policy. Procedures Procedure Name Priority Date/Time Associated Diagnosis Comments LIPID PANEL W REFLEX MEASURED LDL Routine 06/19/2023 12:52 PM SALES/MARKETING Pure hypercholesterolemia ANTI HCV Today 06/14/2021 1:17 PM SALES/MARKETING Need for hepatitis C screening test XR MAMMO BILAT DIAGNOSTIC Routine 04/30/2019 10:04 AM CDT Breast pain, right SCAN-COLONOSCOPY 03/20/2010 12:0 0 AM CDT from Last 3 Months or Most Recently Relevant to Health Maintenance Results * (ABNORMAL) LIPID PANEL W REFLEX MEASURED LDL (06/19/2023 12:52 PM SALES/MARKETING) CHOLESTEROL,TOTAL 246(H) 100 - 199 mg/dL 06/19/2023 1:43 PM SALES/MARKETING [facility] Comment: Cholesterol, Total Reference Ranges Desirable <200 mg/dL Borderline 200-239 mg/dL High >=240 mg/dL TRIGLYCERIDES 90 <150 mg/dL 06/19/2023 1:43 PM SALES/MARKETING [facility] HDL CHOLESTEROL 106 >40 mg/dL 1:43 PM SALES/MARKETING [facility] NON-HDL CHOLESTEROL 140 <145 mg/dl 06/19/2023 1:[address] [facility] CHOL/HDL RATIO 2.32 <4.50 06/19/2023 1:43 PM SALES/MARKETING [facility] LDL CHOLESTEROL 122 <=130 mg/dL 06/19/2023 1:[address] [facility] VLDL CHOLESTEROL 18 <=30 mg/dL 06/19/2023 1:43 PM SALES/MARKETING [facility] PROVIDER ORDERED STATUS RANDOM 06/19/2023 1:43 PM SALES/MARKETING [facility] Blood BLOOD SPECIMEN / Unknown Venipuncture / Unknown 06/19/2023 12:52 PM SALES/MARKETING 06/19/2023 12:56 PM SALES/MARKETING Madonna Mclaughlin MD CHEMISTRY Performing Organization Address [facility]/ZIP Co de Phone Number [facility] [address] [place] [address] * ANTI HCV (06/14/2021 1:17 PM SALES/MARKETING) HEPATITIS C ANTIBODY Non-React alin Non-React alin 06/19/2021 8:25 PM SALES/MARKETING [facility] Comment:Antibodies to HCV no t detected; does not exclude the possibility of exposure to HCV. Blood BLOOD SPECIMEN / Unknown Line/Port / Unknown 06/14/2021 1:17 PM SALES/MARKETING 06/14/2021 1:19 PM SALES/MARKETING Madonna Mclaughlin MD SEND OUTS [facility] [address] [place] [address], [place] * XR MAMMO BILAT DIAGNOSTIC (04/30/2019 10:04 AM CDT) Anatomical Region Laterality Modality BREASTS, Breast Left, Breast Right Bilateral Mammography, Other Impressions 04/30/2019 1:20 PM CDT ?? 1. ??Nothing specific for malignancy in either breast. ?? 2. ??Benign calcifications BILATERALLY. 3. ??A RIGHT breast ultrasound will be performed for further evaluation given the patient's symptoms. ?? RIGHT BREAST ULTRASOUND: ??The RIGHT breast is carefully scanned between the 9-1 o'clock position. ??Customer Engagement Specialist images were obtained. ??The breast is scanned from the nipple to the axilla. ?? IMPRESSION: ??Only normal breast tissue is identified. ??No cystic or solid masses. ??No areas of architectural distortion or shadowing. ??These findings were discussed in detail with the patient. ??Any further workup or follow up should be based on clinical grounds. ??Annual mammography is also recommended. ?? BI-RADS Category 1: Negative HOLLIE PLATA M.D. Diagnostic/Nuclear Medicine Radiologist [email or web address] LEIF/erin / Narrative 04/30/2019 1:20 PM CDT ADDITIONAL VIEWS DIGITAL DIAGNOSTIC BILATERAL MAMMOGRAM WITH COMPUTER-AIDED DETECTION, 04/30/2019 RIGHT BREAST ULTRASOUND, 04/30/2019 CLINICAL HISTORY: ??69-year-old female. ??Shooting RIGHT-sided breast pain within the central upper and upper outer RIGHT breast for approximately 3-4 weeks. ??No personal history of breast cancer or biopsies. ??Family history of breast cancer in a younger sister. ??The patient has multiple sclerosis. ? COMPARISON: ??None. ??This is the patient's new baseline mammogram. TECHNIQUE: ??These mammographic images have been obtained using digital technique. ??Computer-aided detection was utilized. ??CC and MLO views were obtained. ??Directed RIGHT breast ultrasound with Dr. Plata present. ?? BREAST COMPOSITION: ??There are scattered areas of fibroglandular density FINDINGS: ??Few small benign punctate calcifications are identified BILATERALLY. ??Minimal arteriovascular calcification best appreciated on the RIGHT. ??No suspicious microcalcifications or regions of architectural distortion. ??Please note, a significant amount of breast tissue is not included on the CC views due to the patient's generalized immobility. ?? Ultrasound of the central upper and upper outer RIGHT breast will be performed given the patient's symptoms. ?? Madonna Mclaughlin MD MAMMO * SCAN-COLONOSCOPY (03/20/2010 12:00 AM CDT) Narrative 03/20/2010 12:00 AM CDT Procedure Note Scanner - 03/20/2010 12:00 AM CDT Scanner OTHER from Last 3 Months or Most Recently Relevant to Health Maintenance Additional Health Concerns Infection Onset Date Last Indicated ESBL Comment:Order contact precautions. Order consult to Infection Prevention to determine if patient may be removed from precautions. +MDRO 06/09/21 ESBL E. coli urine 06/09/2021 06/09/2021 Advance Directives Documents on File Type Date Recorded Patient Customer Engagement Specialist Expl anation Healthcare Directive 09/26/2011 * Full Code (Latest Code Status on File) Date Activated Date Inactivated Comments 11/20/2022 12:03 PM 11/20/2022 7:37 PM Question Answer Comments Code Status Discussion: Reviewed Preferences * Full Code Date Activated Date Inactivated Comments 11/13/2022 4:37 AM 11/14/2022 3:44 PM Question Answer Comments Code Status Discussion: Reviewed Preferences * Full Code Date Activated Date Inactivated Comments 06/11/2017 6:27 PM 06/14/2017 4:45 PM Question Answer Comments Code Status Discussion: Discussed * Full Code Date Activated Date Inactivated Comments 10/02/2016 6:06 AM 10/02/2016 2:38 PM * Full Code Date Activated Date Inactivated Comments 10/14/2014 11:05 PM 10/16/2014 5:01 PM Care Teams Electric Organ Assembler And Checker Relationship Specialty Start Date End Date Madonna Mclaughlin MD [address] [facility] Alyssa SHAN[place]FANA [address] PCP - General Internal Medicine 03/21/15 [facility], [place] [address] [place] [address] 12/21/16 Juana Nava PA [address] [place] [address] Physician Documentation Coordinator 06/18/17 Pamela Rivera, RN [address] [facility] [address] [place] [address] Spasticity Management Care Coordination- [facility] Registered Nurse 05/29/21 Xenia Acosta MD [address] [facility] [address] [place] [address] Physical Medicine and Rehabilitation 08/31/22 Bethany Hernández, RN [address] [place] [address] Primary Care RN Care Management Registered Nurse 10/10/22 Pia Hirsch MD [address] [facility] [address] [place] [address] Internal Medicine 11/06/22
--- OUTSIDE RECORDS SUMMARY | 2024-03-24 12:42 | XMS_ITS | Clinical Summary ---
Author Organization [facility] Address [address] [place] [address] Care Team Providers Care White Sugar Supervisor Name Role Phone Madonna Mclaughlin MD Primary Care Provider [phone] Allergies Active Allergy Reactions Criticality Noted Date [...] 03/27/2017 11:36 AM CDT Plan of Treatment Health Maintenance Due Date Last Done Comments Colonoscopy 1950 Hepatitis C Screening 1950 Lipid Screening 1950 Mammogram Screening 1950 Osteoporosis Screening 1950 Depression Assessment (PHQ-2) 1951 Yearly Review of HCD 02/20/2000 Zoster Vaccine (1 of 2) 02/20/2000 RSV 60+ Yrs (1 - 1-dose 60+ series) 2010 Adult Tetanus Booster 07/10/2010 07/10/2000 Pneumococcal 65+ (3 of 3 - P PSV23 or PCV20) 04/11/2021 04/11/2016, 07/21/2008, 08/17/2005 COVID-19 Vaccine ( - 2022-2 4 season) 2023 Influenza Vaccine (#1) 2024 6, 04/26/2015, 05/24/2014, Additional history exists Care Teams White Sugar Supervisor Relationship Specialty Start Date End Date Madonna Mclaughlin MD [address] [place] [address] PCP - General Internal Medicine 01/07/17
--- OUTSIDE RECORDS SUMMARY | 2024-03-24 12:42 | XMS_ITS | Referral Summary ---
Author Organization [facility] Address [address] [place] [address] Care Team Providers Care Clinic Charge Nurse Name Role Phone Unavailable Primary Care Provider Unavailabl e Source Comments Patient records contain information from all sites at [facility]. For routine questions regarding patient records, call [phone] during business hours, M-F 8:00 AM - 5:00 PM Central Time. Record requests for emergency care only can be directed to [phone] at any time.[facility] Active Problems Problem Noted Date Diagnosed Date [...] Td Preservative Free (TENIVAC, DECAVAC) 07/10/20 00 Social History Tobacco Use Types Packs/Day Years [...] 10/09/2013 11:59 AM CDT Plan of Treatment Not on file Procedures Procedure Name Priority Date/Time Associated Diagnosis [...]
--- OUTSIDE RECORDS SUMMARY | 2024-03-24 12:42 | XMS_ITS ---
Author Organization [facility] Address [address] [place] [address] Care Team Providers Care Family Support Coordinator Name Role Phone Unavailable Unavailable Unavailable Surgery Details Not on file Complications Check Surgery Details section. Procedure Estimated Blood Loss Check Surgery Details section. Procedure Findings Check Surgery Details section. Procedure Specimens Taken Check Surgery Details section.
== END 2024-03-24 12:48 | disposition home or self-care (01) ==
LOC: ED 12:38
PROVIDERS: Emergency Provider Family Medicine; PCP Internal Medicine
DX: R03.0 Elevated blood-pressure reading, without diagnosis of hypertension (principal)
CPT/HCPCS: 99283